=== PATIENT | male | born 1960 | race Caucasian/White ===

== ENCOUNTER 2016-07-13 20:18 | Emergency (ER) | payer OTHER ==
[~2016-07-13] VITALS: Ht 185.4 cm; Wt 94.8 kg
[~2016-07-13 20:18] MED LIST: AMOXICILLIN875 M1 PO; AMOXIL 875 MG875 MG PO; BYDUREON PEN2 MG IM; CHANTIX 1 MG1 MG; CHANTIX 1 MG1 MG PO; CIALIS5 MG; COZAAR 100MG T100 MG PO; ENDOCET 325 MG-1 TA1 PO; FARXIGA10 MG PO; FARXIGA5 MG PO; FENOFIBRATE200 MG PO; FLEXERIL10 MG PO; GABAPENTIN TAB600 MG PO; GABAPENTIN600 MG PO; LEVEMIR FLEX100 U/M1 SC; LIPITOR 40MG40 MG PO; MASON NATURAL1200 MG PO; METFORMIN1000 MG PO; NORCO 325 MG-51 TAB PO; NORFLEX100 MG PO; NORTRIPTYLINE H50 M1 PO; NORTRIPTYLINE H50 MG PO; OMEGA-3-ACID ETH1 GM PO; PERCOCET 325 MG1 TA2 PO; PERCOCET 5-3251 EACH PO; PREDNISONE10 MG PO; PROTONIX 20MG T20 MG PO
[2016-07-13 20:45] VITALS: BP 130/78
--- NOTE | 2016-07-13 22:00 | ED NECK/BACK PAIN COMPLAINT ---
History of Present Illness General Chief Complaint: Neck/Upper Back Pain/Injury Stated Complaint: NECK PAIN Source: patient Exam Limitations: no limitations Vital Signs & Intake/Output Vital Signs & Intake/Output Vital Signs Date Time Temp Pulse Resp B/P B/P Pulse O2 O2 Flow FiO2 Mean Ox Delivery Rate 07/13 2044 98.2 74 20 130/78 96 Room Air Allergies Coded Allergies: ibuprofen (HIVES, ITCHY, GI UPSET 09/13/15) Reconcile Medications Amlodipine Besylate 2.5 MG TABLET 1 TAB PO DAILY BP (Reported) Amoxicillin 875 MG TABLET 1 TAB PO BID INFECTION Atorvastatin Calcium 40 MG TABLET 1 TAB PO DAILY CHOLESTEROL (Reported) Empagliflozin/Metformin HCl (Synjardy 12.5-1,000 MG Tablet) 12.5 MG-1,000 MG TABLET 1 TAB PO BID DM (Reported) Fenofibrate,Micronized (Fenofibrate) 200 MG CAPSULE 1 CAP PO DAILY CHOLESTEROL /TRIGLYCERIDES (Reported) Gabapentin 600 MG TABLET 1 TAB PO 4XDAILY NERVE PAIN (Reported) Hydrocodone/Acetaminophen (Hydrocodon-Acetaminophen 5-325) (Unknown Strength) TABLET (Unknown Dose) UNKNOWN (Reported) Insulin Detemir (Levemir Flextouch) 100 UNIT/ML (3 ML) INSULN.PEN 30 UNITS SC BID DM (Reported) Lorazepam 0.5 MG TABLET 1 TAB PO 4XDAILY ANXIETY (Reported) Losartan Potassium 100 MG TABLET 1 TAB PO DAILY BP (Reported) Nortriptyline HCl (Pamelor) 50 MG CAPSULE 1 CAP PO QPM MOOD (Reported) [place]-3/Dha/Epa/Fish Oil (Fish Oil 1,000 MG Softgel) (Unknown Strength) CAPSULE (Unknown Dose) PO BID SUPPLEMENT (Reported) Oxycodone HCl/Acetaminophen (Percocet 5-325 MG Tablet) 1 EACH TABLET 1 TAB PO Q4-6 PRN PAIN Triage Note: PT TO ED C/O NECK PAIN SINCE SATURDAY. STATES PAIN IS BURNING IN NATURE, GOES DOWN LEFT SHOULDER AND INTO ARM. HAS SOME TINGELING IN LEFT ARM. DENIES INJURY. DENIES CHEST PAIN, DENIES SOB Triage Nurses Notes Reviewed? yes Onset: Gradual Duration: constant Timing: recent history Quality/Severity: severe, burning, radiation Location: C-spine HPI: Patient is a 56 year old male who presents emergency room with a five-day history of persistent left-sided lateral and upper trapezius muscular pain with paresthesia radiating down his left upper extremity. Patient states that he's had similar episodes in the past. Denies any cervical intervention in his neck. Denies any fevers chills. Denies any mechanism of injury. Denies any extremity swelling shortness of breath chest pain arm pain jaw pain nausea vomiting hemoptysis palpitations or diaphoresis. (ILANA GALICIA) Past History Travel History Traveled to [place] past 21 day No Medical History Any Pertinent Medical History? see below for history Neurological: NONE EENT: NONE Cardiovascular: hypertension, hyperlipidemia Respiratory: NONE Gastrointestinal: NONE Hepatic: NONE Renal: NONE Musculoskeletal: NONE Psychiatric: NONE Endocrine: diabetes Cancer(s): NONE Surgical History Surgical History: hernia repair-umbilical Psychosocial History What is your primary language Yi Tobacco Use: Quit >30 days ago ETOH Use: denies use Illicit Drug Use: denies illicit drug use Family History Hx Contributory? No (ILANA GALICIA) Review of Systems Review of Systems Constitutional: Reports: no symptoms. Eyes: Reports: no symptoms. Ears, Nose, Throat, Mouth: Reports: no symptoms. Respiratory: Reports: no symptoms. Cardiovascular: Reports: no symptoms. Gastrointestinal/Abdominal: Reports: no symptoms. Musculoskeletal: Reports: see HPI, muscle pain, muscle stiffness, neck pain. Skin: Reports: no symptoms. Neurological/Psychological: Reports: see HPI, paresthesia. All Other Systems: Reviewed and Negative (ILANA GALICIA) Physical Exam Physical Exam General Appearance: no apparent distress, comfortable Neck: normal inspection, supple, limited range of motion, paraspinous muscle tender, stiff neck, tender lateral, no midline tenderness Comments: Well-developed well-nourished person in no acute distress HEENT: Normal EENT exam, extraocular motion intact, no nystagmus. Pupils equally round and reactive to light and accommodation. Nose is atraumatic. External auditory canal and Tympanic membranes clear. Pharynx normal. No swelling or edema. Back: Nontender, no CVA tenderness Cardiovascular: Regular rate and rhythms no murmurs rubs or gallops, normal JVP Respiratory: Chest nontender. No respiratory distress.breath sounds clear to auscultation bilaterally Abdomen: Soft, nontender nondistended, no appreciable organomegaly. Normal bowel sounds. No ascites Extremity: No edema, no calf tenderness to palpation, normal and equal pulses. Bilateral upper extremity myotomes dermatomes DTRs intact Neuro: Alert oriented x3, motor sensory normal, Skin: No appreciable rash on exposed skin, skin is warm and dry. Psych: Mood and affect is normal, memory and judgment is normal. (ILANA GALICIA) Progress Differential Diagnosis: AAA, aortic dissection, C spine injury, carotid dissection, cauda equina syn, herniated disc, myofascial strain, pyelo/UTI, sciatica, spinal cord inj, thoracic outlet syn, T/L spine injury, ureterolithiasis, MYOCARDIAL INFARCTION, Plan of Care: Current Medications Sig/Rene Start time Last Medication Dose Stop Time Status Admin Dexamethasone 8 MG ONCE ONE 07/13 2229 UNVr (Decadron) 07/13 2230 Patient on the examination shows concerns of muscular involvement of the left paracervical muscular region with concerns of cervical radiculopathy. Patient does not express any cardiovascular or respiratory complaints at this time. Patient shows no concerns of DVT. Patient was neurovascularly myotomes and dermatomes intact It was noted that patient had previously prescribed benzodiazepine and narcotics this month. Due to history of present illness and exam findings Patient will be treated for concerns of cervical radiculopathy (ILANA GALICIA) Departure Departure Disposition: HOME OR SELF CARE Condition: Stable Clinical Impression Primary Impression: Cervical radicular pain Referrals: TERRANCE WALLACE,NHUNG (PCP/Family) Additional Instructions: As discussed you have received intramuscular injection of Decadron for inflammation. Continue all medications as directed. Begin icing the area directly 20 minutes every 2 hours. Begin the prescription of cyclobenzaprine for muscle relaxation. Prescriptions are waiting at [facility] pharmacy. If no better Saturday follow-up with primary care doctor. If symptoms worsen return to emergency room Departure Forms: Customer Survey General Discharge Information (ILANA GALICIA) PA/SENIOR FIRE PROTECTION ENGINEER Co-Sign Statement Statement: ED Attending supervision documentation- [] I saw and evaluated the patient. I have also reviewed all the pertinent lab results and diagnostic results. I agree with the findings and the plan of care as documented in the PA's/SENIOR FIRE PROTECTION ENGINEER's documentation. [x] I have reviewed the ED Record and agree with the PA's/SENIOR FIRE PROTECTION ENGINEER's documentation. [] Additions or exceptions (if any) to the PAs/SENIOR FIRE PROTECTION ENGINEER's note and plan are summarized below: [] (BRYCE WALLACE,CHERELLE Kumar)
[2016-07-13] MEDS ORDERED: SYNJARDY 12.5-1 EACH PO (22:25)
[2016-07-13] MEDS ORDERED: ATORVASTATIN CA40 M1 PO (22:25)
[2016-07-13] MEDS ORDERED: LOSARTAN POTAS100 M1 PO (22:26)
[2016-07-13] MEDS ORDERED: GABAPENTIN600 M1 PO (22:26)
[2016-07-13] MEDS ORDERED: LORAZEPAM0.5 M1 PO (22:26)
[2016-07-13] MEDS ORDERED: AMLODIPINE BES2.5 M1 PO (22:26)
[2016-07-13] MEDS ORDERED: HYDROCODON-ACE1 EAC2 (22:27)
[2016-07-13] MEDS ORDERED: LEVEMIR FL100 UNIT/1 SC (22:27)
[2016-07-13] MEDS ORDERED: PAMELOR50 M1 PO (22:27)
[2016-07-13] MEDS ORDERED: FENOFIBRATE200 M1 PO (22:27)
[2016-07-13] MEDS ORDERED: FISH OIL 1,001000 MG PO (22:28)
== END 2016-07-13 22:40 ==
LOC: ERH 20:18
DX: M54.12 Radiculopathy, cervical region (principal)
CPT/HCPCS: 96372; J1100

== ENCOUNTER 2017-07-23 21:51 | Emergency (ER) | payer SELFPAY ==
[~2017-07-23] VITALS: Ht 185.4 cm; Wt 95.3 kg
[~2017-07-23 21:51] MED LIST changes: +AMLODIPINE BES2.5 M1 PO; +ATORVASTATIN CA40 M1 PO; +FENOFIBRATE200 M1 PO; +FISH OIL 1,001000 MG PO; +GABAPENTIN600 M1 PO; +HYDROCODON-ACE1 EAC2; +LEVEMIR FL100 UNIT/1 SC; +LORAZEPAM0.5 M1 PO; +LOSARTAN POTAS100 M1 PO; +MEDROL4 M2 PO; +PAMELOR50 M1 PO; +SYNJARDY 12.5-1 EACH PO; +TRAMADOL HCL50 M1 PO
[2017-07-23 22:40] LABS: ABSOLUTE BASOPHIL COUNT 0 /CUMM (0.0-0.2); ABSOLUTE EOSINOPHIL COUNT 0.4 /CUMM (0.0-0.7); ABSOLUTE GRANULOCYTE CT 7.2 /CUMM (1.4-6.5); ABSOLUTE LYMPH COUNT 2.3 /CUMM (1.2-3.4); ABSOLUTE MONOCYTE COUNT 0.7 /CUMM (0.10-0.60); BASOPHIL % 0.4 % (0.0-2.0); EOSINOPHIL % 3.5 % (0-5); HEMATOCRIT 41.3 % (42-52); MEAN CORPUSCULAR HGB 31.2 PG (27.0-31.0); MEAN CORPUSCULAR HGB CONC 33.8 G/DL (33.0-37.0); MEAN CORPUSCULAR VOLUME 92.4 FL (80.0-94.0); MEAN PLATELET VOLUME 10.3 FL (7.4-10.4); PLATELET COUNT 252 /CUMM (130-400); RBC DISTRIBUTION WIDTH 14.2 % (11.5-14.5); RED BLOOD CELL CT 4.48 /CUMM (4.70-6.10); WHITE BLOOD CELL COUNT 10.6 /CUMM (4.8-10.8)
[2017-07-23 22:53] LABS: GRANULOCYTE % 67.5 % (42.2-75.2)
--- NOTE | 2017-07-23 23:32 | RADIOLOGY REPORT ---
EXAMINATION: XR PORTABLE CHEST CLINICAL INFORMATION: Chest pain COMPARISON: 01/26/2011 TECHNIQUE: Portable frontal view of the chest was obtained. FINDINGS: The lungs are well expanded. There is no focal consolidation, edema, or effusion. No pneumothorax. The cardiomediastinal silhouette is within normal limits. No acute osseous abnormality. IMPRESSION: No acute pulmonary findings.
--- NOTE | 2017-07-24 00:47 | ED CARDIAC/CP/PALPITATIONS ---
See Addendum History of Present Illness General Chief Complaint: Chest Pain Stated Complaint: PT HAS C P GOING UP LT SIDE OF NECK,NO SLEEPING 4D Source: patient, family Exam Limitations: no limitations Vital Signs & Intake/Output Vital Signs & Intake/Output Vital Signs Date Time Temp Pulse Resp B/P B/P Pulse O2 O2 Flow FiO2 Mean Ox Delivery Rate 07/24 0211 62 16 174/87 98 Room Air Room Air 07/24 0059 185/91 07/24 0017 98 07/24 0017 58 16 185/91 98 Room Air Room Air 07/23 2158 97.9 64 18 187/97 97 Room Air ED Intake and Output 07/24 0000 07/23 1200 Intake Total Output Total Balance Patient 210 lb Weight Weight Reported by Patient Measurement Method Allergies Coded Allergies: ibuprofen (HIVES, ITCHY, GI UPSET 09/13/15) Reconcile Medications Amlodipine Besylate 2.5 MG TABLET 1 TAB PO DAILY BP (Reported) Amoxicillin 875 MG TABLET 1 TAB PO BID INFECTION Atorvastatin Calcium 40 MG TABLET 1 TAB PO DAILY CHOLESTEROL (Reported) Empagliflozin/Metformin HCl (Synjardy 12.5-1,000 MG Tablet) 12.5 MG-1,000 MG TABLET 1 TAB PO BID DM (Reported) Fenofibrate,Micronized (Fenofibrate) 200 MG CAPSULE 1 CAP PO DAILY CHOLESTEROL /TRIGLYCERIDES (Reported) Gabapentin 600 MG TABLET 1 TAB PO 4XDAILY NERVE PAIN (Reported) Hydrocodone/Acetaminophen (Hydrocodon-Acetaminophen 5-325) (Unknown Strength) TABLET (Unknown Dose) UNKNOWN (Reported) Insulin Detemir (Levemir Flextouch) 100 UNIT/ML (3 ML) INSULN.PEN 30 UNITS SC BID DM (Reported) Lorazepam 0.5 MG TABLET 1 TAB PO 4XDAILY ANXIETY (Reported) Losartan Potassium 100 MG TABLET 1 TAB PO DAILY BP (Reported) Methylprednisolone. (Medrol) 4 MG TAB.DS.PK 1 DP PO AD INFLAMMATION 6 on day 1 then reduce by one tablet daily until gone Nortriptyline HCl (Pamelor) 50 MG CAPSULE 1 CAP PO QPM MOOD (Reported) [place]-3/Dha/Epa/Fish Oil (Fish Oil 1,000 MG Softgel) (Unknown Strength) CAPSULE (Unknown Dose) PO BID SUPPLEMENT (Reported) Oxycodone HCl/Acetaminophen (Percocet 5-325 MG Tablet) 1 EACH TABLET 1 TAB PO Q4-6 PRN PAIN Oxycodone HCl/Acetaminophen (Percocet 5-325 MG Tablet) 5 MG-325 MG TABLET 1 TAB PO Q6P PRN pain Tramadol HCl 50 MG TABLET 1 TAB PO BIDP PRN PAIN Triage Note: PRESENTS TO ED COMPLAINING OF INSOMNIA X 4 DAYS. ALSO REPORTS APPROXIMATELTY 5 HOURS AGO HE BEGAN EXPERIENCING CHEST DISCOMFORT RADIATING TO THE LEFT SIDE OF HIS NECK. DENIED NAUSEA OR VOMITING, NO DIAPHRESIS NOTED. Triage Nurses Notes Reviewed? yes HPI: Patient presents for evaluation of intermittent chest pain episodes of began about one month ago. The patient states that he came to the emergency department this evening because the chest pain radiated to the left side of the neck, which concerned him. Patient states that he has had chest pain episodes each week since onset. They feel like a diffuse discomfort in the chest, described as "feeling like Jell-O". He denies any associated arm pain diaphoresis or dyspnea but does occasionally feel warm when he has his chest pain episodes. The pain when present waxes and wanes from a 5-7/10 in intensity. The patient inhales nicotine via E cigarettes having quit smoking roughly 2 years ago. He states he often takes an alcoholic beverage to help him sleep at night but hasn't had any for about 2 weeks. He denies any drug use. He has been noncompliant with his medications for cholesterol diabetes and hypertension because of the loss of employment and insurance benefits. Past History Travel History Traveled to [place] past 21 day No Medical History Any Pertinent Medical History? see below for history Neurological: NONE EENT: NONE Cardiovascular: hypertension, hyperlipidemia Respiratory: NONE Gastrointestinal: NONE Hepatic: NONE Renal: NONE Musculoskeletal: NONE Psychiatric: NONE Endocrine: diabetes Blood Disorders: NONE Cancer(s): NONE Surgical History Surgical History: hernia repair-umbilical Psychosocial History What is your primary language [place] Tobacco Use: Quit >30 days ago Family History Hx Contributory? No Review of Systems Review of Systems Constitutional: Reports: no symptoms. EENTM: Reports: no symptoms. Respiratory: Reports: no symptoms. Cardiovascular: Reports: see HPI. GI: Reports: no symptoms. Genitourinary: Reports: no symptoms. Musculoskeletal: Reports: no symptoms. Skin: Reports: no symptoms. Neurological/Psychological: Reports: no symptoms. Hematologic/Endocrine: Reports: no symptoms. Immunologic/Allergic: Reports: no symptoms. All Other Systems: Reviewed and Negative Physical Exam Physical Exam Cardiovascular: SEE BELOW Comments: Gen.: Well-nourished, well-developed, no acute respiratory distress. Head: Normocephalic, atraumatic. Eyes: Normal inspection bilaterally Ears: Normal inspection bilaterally Nose: Normal inspection Throat/mouth : Moist mucosa Neck: Supple, full range of motion, no goiter Heart: Regular rate and rhythm, no murmurs rubs or gallops Lungs: Clear to auscultation bilaterally with normal air entry Chest: Nontender Back: Normal range of motion Abdomen: Soft, nontender, nondistended, normal bowel sounds Extremities: Normal range of motion grossly, equal radial pulses, no cyanosis clubbing or edema Neurologic: Cranial nerves grossly intact, speech is clear Skin: warm and dry Psychiatric: Calm, cooperative, no apparent delusions or hallucinations Core Measures ACS in differential dx? No CVA/TIA Diagnosis No Sepsis Present: No Sepsis Focused Exam Completed? No Progress Differential Diagnosis: AMI (OKAY), aortic dissection, atrial fibrillation, CHF/ pulm edema, musculoskeletal pain, pericarditis, pneumonia, pneumothorax, PSVT, unstable angina, V-fib/V-Tach, WPW syndrome Plan of Care: Orders Procedure Date/time Status TROPONIN LEVEL 07/240 Complete EKG 07/24 0200 Active FingerStick- Glucose 07/24 0047 Active URINALYSIS 07/24 0028 Complete TROPONIN LEVEL 07/23 220 Complete MAGNESIUM 07/23 2205 Complete COMPREHENSIVE METABOLIC PANEL 07/23 2205 Complete CHOLESTEROL 07/23 2205 Complete CBC WITHOUT DIFFERENTIAL 07/23 2205 Complete EKG 07/23 2154 Active Laboratory Tests 07/24/17 0200: Troponin I < 0.01 07/24/17 0030: Urine Color STRAW, Urine Clarity CLEAR, Urine pH 6.5, Ur Specific [place] 1.010, Urine Protein NEG, Urine Ketones NEG, Urine Nitrite NEG, Urine Bilirubin NEG, Urine Urobilinogen 0.2, Ur Leukocyte Esterase NEG, Ur Microscopic EXAM NOT REQUIRED, Urine Hemoglobin NEG, Urine Glucose 500 H 07/23/17 2209: Anion Gap 12, Estimated GFR > 60, BUN/Creatinine Ratio 18.6, Glucose 269 H, Calcium 8.4, Magnesium 1.4 L, Total Bilirubin 0.6, AST 33, ALT 19 L, Alkaline Phosphatase 171 H, Troponin I < 0.01, Total Protein 6.7, Albumin 3.8, Globulin 2.9, Albumin/Globulin Ratio 1.3, Cholesterol 217 H, CBC w Diff NO MAN DIFF REQ, RBC 4.48 L, MCV 92.4, MCH 31.2 H, MCHC 33.8, RDW 14.2, MPV 10.3, Gran % 67.5, Lymphocytes % 21.7, Monocytes % 6.9, Eosinophils % 3.5, Basophils % 0.4, Absolute Granulocytes 7.2 H, Absolute Lymphocytes 2.3, Absolute Monocytes 0.7 H, Absolute Eosinophils 0.4, Absolute Basophils 0 Diagnostic Imaging: Discussed w/RAD: Radiology Read. CXR Impression: PATIENT: SILVESTRE VALDES JR PRESENT AGE: 57 PATIENT ACCOUNT NO: [id number] : 60 LOCATION: [facility] ORDERING PHYSICIAN: Mihir Solomon DO (TBS) SERVICE DATE: 07/23/17 EXAM TYPE: RAD - XRY-PORTABLE CHEST XRAY EXAMINATION: XR PORTABLE CHEST CLINICAL INFORMATION: Chest pain COMPARISON: 01/26/2011 TECHNIQUE: Portable frontal view of the chest was obtained. FINDINGS: The lungs are well expanded. There is no focal consolidation, edema, or effusion. No pneumothorax. The cardiomediastinal silhouette is within normal limits. No acute osseous abnormality. IMPRESSION: No acute pulmonary findings. DICTATED BY: Amrik Louis MD DATE/TIME DICTATED: 07/23/172326 DOCTOR OF RADIOLOGY:BENY DATE/TIME TRANSCRIBED:07/23/172326 CONFIDENTIAL, DO NOT COPY WITHOUT APPROPRIATE AUTHORIZATION. <Electronically signed in Other Vendor System> SIGNED BY: Amrik Louis MD 07/23/17 3536 Initial ED EKG: NSR, rate (62), nonspecific ST T wave chg Prior EKG: unchanged Comments: 07/24/2017 3:52:25 AM upon my arrival to the room I found Silvestre sleeping but he arose easily. I have updated him and his on test results. He states that the Xanax made him feel much better and he was able to sleep. He wishes to try this medication over the next few days to see if it impacts on his chest pain episodes. Departure Departure Disposition: HOME OR SELF CARE Condition: Stable Clinical Impression Primary Impression: Atypical chest pain Secondary Impressions: Stress Referrals: Yamileth WALLACE,Daryl (PCP/Family) Maximo Branch MD Additional Instructions: Xanax as prescribed. Rest, no exertion or heavy lifting. Strict diabetic diet, low salt diet. Follow-up with Dr. Branch as soon as possible for reevaluation and further testing. Notify your primary care doctor this emergency department visit and treatment plan. Return if any concerns or sudden worsening. Please note that there might be incidental findings in your evaluation that are unrelated to the current emergency department visit. Please notify your primary care doctor about this emergency department visit in order to obtain and review all of the testing performed so that these incidental findings can be monitored as needed. If you had an x-ray performed, please understand that some fractures may not be seen on the initial set of x-rays. If your symptoms persist you might need a repeat set of x-rays to check for such a fracture. If you had a laceration evaluated, please understand that foreign bodies such as glass or wood may not be visible to the naked eye or on plain x-rays. If the wound becomes red, swollen, increasingly more painful or if there is any drainage from the wound, please have it reevaluated by a physician for the possibility of a retained foreign body. If you're unable to follow up as outlined in the discharge instructions please return to the emergency department. Thank you for choosing the [facility] Emergency Department for your care. It was a pleasure to serve you today. Mihir De La Garza M.D. [facility] Departure Forms: Customer Survey General Discharge Information Prescriptions: Current Visit Scripts Alprazolam (Xanax) 1 TAB PO BIDP PRN STRESS/CHEST PAIN #10 TAB Critical Care Note Critical Care Note Critical Care Time: non-applicable
[2017-07-24 02:11] VITALS: BP 174/87
[2017-07-24] MEDS ORDERED: XANAX0.25 M1 PO (03:55)
== END 2017-07-24 04:21 ==
LOC: ERH 21:51
PROVIDERS: Emergency Medicine
DX: R07.89 Other chest pain (principal); F43.9 Reaction to severe stress, unspecified
CPT/HCPCS: 71045; 81003; 93005; 93010; 96372

== ENCOUNTER 2017-10-01 17:06 | Inpatient (IN) | payer OTHER ==
[~2017-10-01] VITALS: Ht 188 cm; Wt 95.3 kg
[~2017-10-01 17:06] MED LIST changes: +XANAX0.25 M1 PO
[2017-10-01 17:41] LABS: ABSOLUTE BASOPHIL COUNT 0 /CUMM (0.0-0.2); ABSOLUTE EOSINOPHIL COUNT 0 /CUMM (0.0-0.7); ABSOLUTE GRANULOCYTE CT 9.9 /CUMM (1.4-6.5); ABSOLUTE LYMPH COUNT 1.2 /CUMM (1.2-3.4); ABSOLUTE MONOCYTE COUNT 0.7 /CUMM (0.10-0.60); BASOPHIL % 0.1 % (0.0-2.0); EOSINOPHIL % 0.3 % (0-5); HEMATOCRIT 38.9 % (42-52); MEAN CORPUSCULAR HGB 30.1 PG (27.0-31.0); MEAN CORPUSCULAR HGB CONC 33.1 G/DL (33.0-37.0); MEAN CORPUSCULAR VOLUME 90.8 FL (80.0-94.0); PLATELET COUNT 172 /CUMM (130-400); RBC DISTRIBUTION WIDTH 14.1 % (11.5-14.5); RED BLOOD CELL CT 4.29 /CUMM (4.70-6.10); WHITE BLOOD CELL COUNT 11.8 /CUMM (4.8-10.8)
[2017-10-01 18:06] LABS: GRANULOCYTE % 83.4 % (42.2-75.2)
--- NOTE | 2017-10-01 18:50 | CT SCAN REPORT ---
CT ABDOMEN AND PELVIS WITH CONTRAST CLINICAL INFORMATION: Abdominal pain and nausea. Not passing stool or gas. COMPARISON: Abdominal CT 05/04/2015. TECHNIQUE: Multidetector volumetric imaging was performed of the abdomen and pelvis following IV administration of 95 mL of Optiray 320 intravenous contrast. Sagittal and coronal reformatted images were obtained on the technologist's workstation. FINDINGS: There is fairly extensive edema and inflammation surrounding the second and third portions of the duodenum as well as the pancreas. Edema tracks anteriorly below the greater curvature of the stomach towards the transverse colon, and tracks inferiorly along the paracolic gutters on both sides. The second and third portions of the duodenum appear thick-walled and portions of the stomach also appear slightly thick-walled. No discrete peripherally enhancing fluid collections. The common bile duct and pancreatic duct are normal in size. The portal venous system remains patent. The lung bases are clear. There is diffuse hepatic steatosis. The spleen, adrenal glands, and gallbladder are normal. The kidneys exhibit symmetric nephrograms without evidence of hydronephrosis or nephrolithiasis. There are a few small bilateral renal cysts. Scattered colonic diverticulosis without acute diverticulitis. There is intramural fat within the ascending colon and portions of the transverse colon which can be seen as the sequela of inflammatory bowel disease. The large and small bowel are normal in caliber without evidence of mechanical obstruction.The appendix is normal. There is no free air . No mesenteric or retroperitoneal adenopathy. There is aortoiliac atherosclerotic calcification. Central prostate calcifications. No pelvic adenopathy. Free fluid layers dependently within the pelvis. There are no acute osseous abnormalities. No significant soft tissue abnormality. IMPRESSION: - There is fairly extensive edema and inflammation surrounding the second and third portions of the duodenum as well as the pancreas. Edema tracks anteriorly below the greater curvature of the stomach towards the transverse colon, and tracks inferiorly along the paracolic gutters on both sides, greater on the right. Differential considerations include the sequela of pancreatitis or duodenitis/gastritis with the latter favored given that the pancreas itself looks relatively normal in appearance and that the second and third portions of the duodenum and to a lesser extent the stomach appear thick walled with mucosal hyperenhancement. Recommend correlation with serum amylase/lipase. - Diffuse hepatic steatosis. - There is intramural fat within the ascending colon and portions of the transverse colon which can be seen as the sequela of inflammatory bowel disease. Recommend correlation with the patient's history.
--- NOTE | 2017-10-01 19:54 | ED GI/GU/ABDOMINAL COMPLAINT ---
History of Present Illness General Chief Complaint: General Adult Stated Complaint: LOWER BELLY PAIN Source: patient, family Exam Limitations: no limitations Vital Signs & Intake/Output Vital Signs & Intake/Output Vital Signs Date Time Temp Pulse Resp B/P B/P Pulse O2 O2 Flow FiO2 Mean Ox Delivery Rate 10/01 1714 98.5 83 18 122/71 99 Room Air Allergies Coded Allergies: ibuprofen (HIVES, ITCHY, GI UPSET 09/13/15) Reconcile Medications Alprazolam (Xanax) 0.25 MG TABLET 1 TAB PO BIDP PRN STRESS/CHEST PAIN Amlodipine Besylate 2.5 MG TABLET 1 TAB PO DAILY BP (Reported) Amoxicillin 875 MG TABLET 1 TAB PO BID INFECTION Atorvastatin Calcium 40 MG TABLET 1 TAB PO DAILY CHOLESTEROL (Reported) Empagliflozin/Metformin HCl (Synjardy 12.5-1,000 MG Tablet) 12.5 MG-1,000 MG TABLET 1 TAB PO BID DM (Reported) Fenofibrate,Micronized (Fenofibrate) 200 MG CAPSULE 1 CAP PO DAILY CHOLESTEROL /TRIGLYCERIDES (Reported) Gabapentin 600 MG TABLET 1 TAB PO 4XDAILY NERVE PAIN (Reported) Hydrocodone/Acetaminophen (Hydrocodon-Acetaminophen 5-325) (Unknown Strength) TABLET (Unknown Dose) UNKNOWN (Reported) Insulin Detemir (Levemir Flextouch) 100 UNIT/ML (3 ML) INSULN.PEN 30 UNITS SC BID DM (Reported) Lorazepam 0.5 MG TABLET 1 TAB PO 4XDAILY ANXIETY (Reported) Losartan Potassium 100 MG TABLET 1 TAB PO DAILY BP (Reported) Methylprednisolone. (Medrol) 4 MG TAB.DS.PK 1 DP PO AD INFLAMMATION 6 on day 1 then reduce by one tablet daily until gone Nortriptyline HCl (Pamelor) 50 MG CAPSULE 1 CAP PO QPM MOOD (Reported) [place]-3/Dha/Epa/Fish Oil (Fish Oil 1,000 MG Softgel) (Unknown Strength) CAPSULE (Unknown Dose) PO BID SUPPLEMENT (Reported) Oxycodone HCl/Acetaminophen (Percocet 5-325 MG Tablet) 1 EACH TABLET 1 TAB PO Q4-6 PRN PAIN Oxycodone HCl/Acetaminophen (Percocet 5-325 MG Tablet) 5 MG-325 MG TABLET 1 TAB PO Q6P PRN pain Tramadol HCl 50 MG TABLET 1 TAB PO BIDP PRN PAIN Triage Note: 57M W SEVERE LOWER ABD PAIN SINCE SATURDAY, CONSTANT AND UNIMPROVED. REPORTS HX OF ABDOMINAL SURGERY ON HERNIA. REPORTS LAST BM 3-4 DAYS AGO, NO FLATULENCE. APPEARS UNCOMFORTABLE IN TRIAGE. UNABLE TO EAT OR DRINK SINCE SATURDAY. +N/V BILE. DENIES SYMPTOMS OR CP/SOB Triage Nurses Notes Reviewed? yes HPI: Patient is a 57-year-old male with past medical history as outlined below who has been lost to PCP and GI follow-up secondary to insurance issues, who presents today with abdominal pain. Upon my initial encounter he is generally uncomfortable, and indicates the area of his pain is across the lower abdomen, with pain to a lesser degree across the upper abdomen. He is diffusely tender but not frankly peritonitic. He denies other symptoms at this time. Past History Travel History Traveled to [place] past 21 day No Medical History Any Pertinent Medical History? see below for history Neurological: NONE EENT: NONE Cardiovascular: hypertension, hyperlipidemia Respiratory: NONE Gastrointestinal: NONE Hepatic: NONE Renal: NONE Musculoskeletal: NONE Psychiatric: NONE Endocrine: diabetes Blood Disorders: NONE Cancer(s): NONE Surgical History Surgical History: hernia repair-umbilical Psychosocial History What is your primary language [place]ijani Tobacco Use: Current Daily Use Daily Tobacco Use Amount/Type: Smokeless tobacco daily Family History Hx Contributory? Yes Review of Systems Review of Systems Constitutional: Reports: see HPI. EENTM: Reports: no symptoms. Respiratory: Reports: no symptoms. Cardiovascular: Reports: no symptoms. GI: Reports: see HPI, abdominal pain, bloating, constipation. Denies: bloody stool, vomiting. Genitourinary: Reports: no symptoms. Musculoskeletal: Reports: no symptoms. Skin: Reports: no symptoms. Neurological/Psychological: Reports: no symptoms. Hematologic/Endocrine: Reports: no symptoms. Immunologic/Allergic: Reports: no symptoms. All Other Systems: Reviewed and Negative Physical Exam Physical Exam Gastrointestinal: tenderness Comments: HEENT: Inspection of the head reveals a normocephalic cranium with no signs of trauma. Ophtho: Extraocular muscles are intact and pupils are equal and reactive to light bilaterally with no afferent pupillary defect. The sclera are noninjected , and there is no obvious discharge. Neck: The trachea is midline, there is no obvious asymmetry or mass over the thyroid, and there is no midline cervical spine tenderness Respiratory: The lungs are clear and equal to auscultation bilaterally without wheezes, rales, or rhonchi. The patient exhibits no signs of labored breathing. Cardiac: Regular rhythm and non-tachycardic without appreciable murmurs on auscultation. No obvious JVD. GI: Examination of the abdomen reveals generalized abdominal tenderness without joni focality, worse in the bilateral lower quadrants but also quite severe in the epigastrium. There is negative joni Hernandez's sign, negative McBurney's point tenderness, negative [place] sign, negative Andino-Gallagher sign, and no signs of peritonitis whatsoever on percussion or deep palpation. The skin is intact with no sign of trauma or infection. : Deferred Neuro: The patient is oriented to person, place, time, and situation, with no obvious focal motor deficits. There were no sensory deficits, and the patient exhibit purposeful movement of all 4 extremities. Cranial nerves II through XII are intact, and gait is normal. Behavioral: Calm and cooperative Dermatologic: Dermatologic examination reveals no diffuse rashes or exanthems, no petechiae, no ecchymoses, and no other signs of erythema or infection. Core Measures ACS in differential dx? No Sepsis Present: No Sepsis Focused Exam Completed? No Progress Differential Diagnosis: AAA, appendicitis, bowel obstruction, colon cancer, cholecystitis, diverticulitis, gastritis, hernia, hemorrhoids, ischemic bowel, inflamm bowel dis, pancreatitis, peptic ulcer, PUD/GERD, perforated viscous, SBO Plan of Care: Orders Procedure Date/time Status Nothing by Mouth 10/02 B Active Add-on Test (ER Only) 10/01 1902 Active AMYLASE 10/01 1720 Complete URINALYSIS 10/01 171 Active TROPONIN LEVEL 10/01 1714 Complete LIPASE 10/01 1714 Complete LACTIC ACID 10/01 171 Complete COMPREHENSIVE METABOLIC PANEL 10/01 171 Complete CBC WITHOUT DIFFERENTIAL 10/01 171 Complete Laboratory Tests 10/01/17 2014: Lactic Acid Cancelled 10/01/17 1720: Anion Gap 12, Estimated GFR > 60, BUN/Creatinine Ratio 18.8, Glucose 227 H, Lactic Acid 1.4, Calcium 7.0 L, Total Bilirubin 1.1, AST 60 H, ALT 24, Alkaline Phosphatase 90, Troponin I < 0.01, Total Protein 6.1 L, Albumin 3.2 L , Globulin 2.9, Albumin/Globulin Ratio 1.1, Amylase 47, Lipase 196, CBC w Diff NO MAN DIFF REQ, RBC 4.29 L, MCV 90.8, MCH 30.1, MCHC 33.1, RDW 14.1, MPV 11.0 H, Gran % 83.4 H, Lymphocytes % 10.4 L, Monocytes % 5.8, Eosinophils % 0.3, Basophils % 0.1, Absolute Granulocytes 9.9 H, Absolute Lymphocytes 1.2, Absolute Monocytes 0.7 H, Absolute Eosinophils 0, Absolute Basophils 0 Initial ED EKG: none Comments: Patient is intubated today with severe abdominal pain and was found to have diffuse and severe inflammatory bowel disease. His pain is significant and his follow-up potential is poor, so he ultimately required hospitalization at the recommendation of Dr. Johnson from gastroenterology. She plans to perform an EGD tomorrow morning to definitively diagnose the patient's process. CT IMPRESSION: - There is fairly extensive edema and inflammation surrounding the second and third portions of the duodenum as well as the pancreas. Edema tracks anteriorly below the greater curvature of the stomach towards the transverse colon, and tracks inferiorly along the paracolic gutters on both sides, greater on the right. Differential considerations include the sequela of pancreatitis or duodenitis/gastritis with the latter favored given that the pancreas itself looks relatively normal in appearance and that the second and third portions of the duodenum and to a lesser extent the stomach appear thick walled with mucosal hyperenhancement. Recommend correlation with serum amylase/lipase. - Diffuse hepatic steatosis. - There is intramural fat within the ascending colon and portions of the transverse colon which can be seen as the sequela of inflammatory bowel disease. Recommend correlation with the patient's history. Departure Departure Time of Disposition: 2024 Disposition: STILL A PATIENT Condition: Stable Clinical Impression Primary Impression: Inflammatory bowel disease Referrals: Patient Has No Primary Care Dr (PCP/Family) Departure Forms: Customer Survey General Discharge Information Admission Note Spoke With: Francy Castelan MD Documentation of Exam: Documentation of any treatments & extenuating circumstances including Concerns Regarding Discharge (functional status, medication knowledge or non-compliance, living conditions, etc.) that warrant an admission rather than observation: Patient requires hospitalization for multiple reasons including intravenous analgesics, gentle IV fluid resuscitation, GI consultation, and EGD procedure in the morning. I do not feel that discharge home is reasonable given the severity of his pain and the unlikelihood of him obtaining close outpatient follow-up given that he does not have a spool cleaner nor does he have any insurance whatsoever.
--- NOTE | 2017-10-01 20:41 | History & Physical ---
Fadi Evangelista 10/01/172039: General Information and HPI MD Statement: I have seen and personally examined SILVESTRE VALDES Oswaldo PRESTON and documented this H&P. The patient is a 57 year old M who presented with a patient stated chief complaint of [lower abdominal pain]. Source of Information: patient Exam Limitations: no limitations History of Present Illness: The patient is a 57 years old gentleman with history of type 2 DM, HLP, and HTN, who is here with CC of abdominal pain. His abdominal pain started 3 days ago in his lower part of abdomen, was 3/10 then. The pain gradually worsened to 8/10. He did not have any bowel movement for the past few days. Today when he was at work he has a large bowel movement which was not bloody and no ian. He lost his medical insurance in Apr 2017, so unfortunately he was not able to take his medication for the past 4 months. He also reports decreased apetite for the past few days and also nausea, but he had no vomitting. He reports no history of diarrhea or constipation recently, but he had fatigue lately. He has not had fever, chills, sweating, chest pain, SOB, or alcohol use lately. No history of Visual problem, oral lesion, no rash, no sick contact, no travel, no joint pain, and no food poisoning. He has a history of dyspahgia in 2012, an upper GI endoscopy was done which was normal. He still has dysphagia to both solid and liquid. He also had a colonoscopy done in 2015 which was normal. 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 No alcohol, Is and has 6 children. Imaging: Abdominal CT with IV contrast: There is fairly extensive edema and inflammation surrounding the second and third portions of the duodenum as well as the pancreas. Edema tracks anteriorly below the greater curvature of the stomach towards the transverse colon, and tracks inferiorly along the paracolic gutters on both sides, greater on the right. Differential considerations include the sequela of pancreatitis or duodenitis/gastritis with the latter favored given that the pancreas itself looks relatively normal in appearance and that the second and third portions of the duodenum and to a lesser extent the stomach appear thick walled with mucosal hyperenhancement. Diffuse hepatic steatosis. There is intramural fat within the ascending colon and portions of the transverse colon which can be seen as the sequela of inflammatory bowel disease. Labs: WBC: 11.8, Hb: 12.9, Plt: 172 Na: 135, K: 3.7 BS: 227, Cr: 0.8, BUN 15 Lipase: 196, Amylase: 47 Ca: 7.0 ,Alb: 3.2 AST: 60, ALT: 24, Alk Ph: 90 Trop: 0.01 Problem list: 1. R/O IBD 2. R/O infectious colitis 3. DM, HTN, HLP 5. Dysphagia Allergies/Medications Allergies: Coded Allergies: ibuprofen (HIVES, ITCHY, GI UPSET 09/13/15) Compliance With Home Meds: GOOD (Last taken 4 months ago) Past History Travel History Traveled to [place] past 21 day No Medical History Neurological: NONE EENT: NONE Cardiovascular: hypertension, hyperlipidemia Respiratory: NONE Gastrointestinal: NONE Hepatic: NONE Renal: NONE Musculoskeletal: NONE Psychiatric: NONE Endocrine: diabetes Blood Disorders: NONE Cancer(s): NONE Surgical History Surgical History: hernia repair-umbilical Past Family/Social History Family History Relations & Conditions if any BROTHER FH: colon cancer in first degree relative <60 years old, Onset: 50-60. MOTHER SON Relation not specified for: FH: brain tumor FH: breast cancer Psychosocial History Smoking Status: Former Smoker (Now smokes E-cig) ETOH Use: denies use Illicit Drug Use: denies illicit drug use Review of Systems Review of Systems Constitutional: Reports: see HPI. EENTM: Reports: see HPI. Cardiovascular: Reports: see HPI. Respiratory: Reports: see HPI. GI: Reports: see HPI. Genitourinary: Reports: see HPI. Musculoskeletal: Reports: see HPI. Skin: Reports: see HPI. Neurological/Psychological: Reports: see HPI. Hematologic/Endocrine: Reports: see HPI. Immunologic/Allergic: Reports: see HPI. Date of Last Colonoscopy: 09/21/15 Exam & Diagnostic Data Last 24 Hrs of Vital Signs/I&O Vital Signs Date Time Temp Pulse Resp B/P B/P Pulse O2 O2 Flow FiO2 Mean Ox Delivery Rate 10/02 0000 97.9 73 18 120/70 94 Nasal 2.0L Cannula 07/17 2250 98.1 75 20 146/72 96 Room Air 10/01 2139 89 20 131/69 96 10/01 1714 98.5 83 18 122/71 99 Room Air Intake & Output 10/02 0800 10/02 0000 10/01 1600 Intake Total Output Total Balance Patient 210 lb Weight Weight Reported by Patient Measurement Method Physical Exam General Appearance Alert, Oriented X3, Cooperative Skin No Rashes, No Breakdown, No Significant Lesion Skin Temp/Moisture Exam: Warm/Dry Sepsis Skin Exam (color): Normal for Ethnicity HEENT Atraumatic, PERRLA, EOMI (Dry Mucosa) Neck Supple, No JVD, No thryomegaly, No LAD Cardiovascular Regular Rate, Normal S1, Normal S2, No Murmurs Lungs Clear to Auscultation, Normal Air Movement Abdomen Normal Bowel Sounds (generalized tenderness), Soft Neurological Normal Speech, Strength at 5/5 X4 Ext, Normal Tone, Sensation Intact, Cranial Nerves 3-12 NL Extremities No Clubbing, No Cyanosis, No Edema, Normal Pulses, No Tenderness/ Swelling Vascular Normal Pulses, Pulses Symmetrical Sepsis Cap Refill Exam: <2 Sec Last 24 Hrs of Labs/[place]: Laboratory Tests 10/01/17 2200: Urine Color YEL, Urine Clarity CLEAR, Urine pH 6.5, Ur Specific [place] <= 1.005 , Urine Protein 30 H, Urine Ketones TRACE H, Urine Nitrite NEG, Urine Bilirubin NEG, Urine Urobilinogen 4.0 H, Ur Leukocyte Esterase NEG, Ur Microscopic SEDIMENT EXAMINED, Urine RBC FEW H, Urine WBC RARE, Urine Hemoglobin SMALL H, Urine Glucose NEG 10/01/17 2014: Lactic Acid Cancelled 10/01/17 1720: Anion Gap 12, Estimated GFR > 60, BUN/Creatinine Ratio 18.8, Glucose 227 H, Lactic Acid 1.4, Calcium 7.0 L, Total Bilirubin 1.1, AST 60 H, ALT 24, Alkaline Phosphatase 90, Troponin I < 0.01, Total Protein 6.1 L, Albumin 3.2 L , Globulin 2.9, Albumin/Globulin Ratio 1.1, Amylase 47, Lipase 196, CBC w Diff NO MAN DIFF REQ, RBC 4.29 L, MCV 90.8, MCH 30.1, MCHC 33.1, RDW 14.1, MPV 11.0 H, Gran % 83.4 H, Lymphocytes % 10.4 L, Monocytes % 5.8, Eosinophils % 0.3, Basophils % 0.1, Absolute Granulocytes 9.9 H, Absolute Lymphocytes 1.2, Absolute Monocytes 0.7 H, Absolute Eosinophils 0, Absolute Basophils 0 Assessment/Plan Assessment: Mr. Valdes is a 57 years old gentleman who has a history of DM, HTN, and HLP. He is here with CC of Abd pain that started from Saturday. He has gerneralized abdominal pain and tenderness that also has agreviated his lower back pain. He was not febrile. CT scan of his abdomen showes wxtensive inflamation surrounding 2nd and 3rd protions of duodenum and pancreas. This could be due to IBD. His pancreas looks normal on CT scan and lipase and amylase are normal, so it is less likely to be due to pancreatitis. Appendix is reported normal in CT abdomen, so this not likely to be the source of his abd pain. His WBC is 11.8 which is mildly elevated, this is probably due to the inflamation and not due to infection. So I would think there is no need to start antibiotics for him now. He had BUN/Cr of 15/0.8. Due to the inflamatory process that is onging it is prudent to keep the patient NPO, Surgery consult might be helpful. We need to ask gasteroentrologist to visit the patient. Meanwhile serial abd exam and evaluation is necessary to find out whether it is improving or not. Since the patient has DM, he should be on sliding scale. and we should keep an eye on his BP. As Ranked By This Provider Problem List: 1. Inflammatory bowel disease 2. Diabetes 3. Hypertension 4. Hyperlipidemia 5. Dysphagia Core Measures/Misc (12/02) Acute Coronary Syndrome ACS Diagnosis: No Congestive Heart Failure Congestive Heart Failure Diagnosis No Cerebrovascular Accident CVA/TIA Diagnosis: No VTE (View Protocol) VTE Risk Factors Age>40 No Mechanical VTE Prophylaxis d/t N/A MechProphylax Ordered No VTE Pharm Prophylaxis d/t NA PharmProphylax ordered Sepsis (View protocol) Sepsis Present: No If YES complete Sepsis Event Note If YES complete Sepsis Event Note Florence Manning 10/01/172052: General Information and HPI Allergies/Medications Home Med list Amlodipine Besylate 2.5 MG TABLET 1 TAB PO DAILY BP (Reported) Atorvastatin Calcium 40 MG TABLET 1 TAB PO DAILY CHOLESTEROL (Reported) Empagliflozin/Metformin HCl (Synjardy 12.5-1,000 MG Tablet) 12.5 MG-1,000 MG TABLET 1 TAB PO BID DM (Reported) Fenofibrate,Micronized (Fenofibrate) 200 MG CAPSULE 1 CAP PO DAILY CHOLESTEROL /TRIGLYCERIDES (Reported) Gabapentin 600 MG TABLET 1 TAB PO 4XDAILY NERVE PAIN (Reported) Insulin Detemir (Levemir Flextouch) 100 UNIT/ML (3 ML) INSULN.PEN 30 UNITS SC BID DM (Reported) Losartan Potassium 100 MG TABLET 1 TAB PO DAILY BP (Reported) Ripley-3/Dha/Epa/Fish Oil (Fish Oil 1,000 MG Softgel) (Unknown Strength) CAPSULE (Unknown Dose) PO BID SUPPLEMENT (Reported) Core Measures/Misc (12/02) Sepsis (View protocol) If YES complete Sepsis Event Note If YES complete Sepsis Event Note Resident Review Statement Resident Statement: examined this patient, discussed with international specialist, amended to note Other Findings: Mr Valdes is a 57 year old man w/ a PMHx of hyperlipidemia, hypertension, insulin treated type 2 diabetes( not being on any meds for the last 4 months due to insurance issues, and has not seen PCP in 5 months) came to the hospital with a chief concern of lower abdominal pain x 3 days. Pain started three days ago, located periumbilical and radiated towards b/l lower abdominal area, gradually progressed from severity of 3/10-->8/10, which made him seek medical attention. He went to work on the day of admission, and reported to have a large bowel movement, non bloody. Also reported to have nausea, but no vomiting. Decreased by mouth intake in the last 4 days. No ian, brpbr. No fever, but reported fatigue. No chest pain, shortness of breath. No recent alcohol use. No drug use. No vision problems, joint pains, oral ulcers, rashes, but repored lower back pain which is chronic. No travel, or sick contacts, or any food poisoning. Fam Hx of stage 4 colon cancer in brother at age 59, breast ca in mother. with six healthy children. Last colonoscopy done was in 2015 for scrrening given h/o colon cancer in brother. Also gave h/o of dysphagia to solid and liquid foods, and has a h/o gastroparesis which was not followed up by his GI after his last EGD. At the time of admission-temperature 98.5, pulse rate 83, respiration 18, blood pressure 122/71, pulse ox 99% on room air. General Exam: AAOx3, mild distress, dry mucosa, Skin: No rashes, no breakdown; HEENT: PERRLA, EOMI;Neck: Supple, No JVD; No cervical lymphadenopathy;CVS: Reg Rate, Normal S1,S2, No MGR;Resp: Normal air entry, no ronchi/rales;Abdomen: Soft , RLQ ++ tenderness > other parts of abdomen, Normal Bowel Sounds all four quadrants;Neuro: Normal Speech, Strength 5/5 b/l x 4 extremities, Sensation intact, CN III-XII NL, Reflexes 2+; Extremities: No cyanosis, no pedal edema. Pertinent lab findings: WBC 11.8 (83.4% granulocytes), hemoglobin 12.9, hematocrit 38.9, platelet count 172 Sodium 135, potassium 3.7, chloride 99, bicarbonate 24 BUN 15, creatinine 0.8. Glucose 227. Lactic acid 1.4 Calcium 7.0, albumin 3.2 corrected calcium- 7.64 ( low calcium ? saponification ) Liver enzymes-AST 60(fatty liver ?), ALT 24, alkaline phosphatase 90. Troponin I 0.01. Lipase 196, amylase 47. UA-pending. CT abdomen w/ iv contrast- There is fairly extensive edema and inflammation surrounding the second and third portions of the duodenum as well as the pancreas. Edema tracks anteriorly below the greater curvature of the stomach towards the transverse colon, and tracks inferiorly along the paracolic gutters on both sides, greater on the right. Differential considerations include the sequela of pancreatitis or duodenitis/gastritis with the latter favored given that the pancreas itself looks relatively normal in appearance and that the second and third portions of the duodenum and to a lesser extent the stomach appear thick walled with mucosal hyperenhancement. Diffuse hepatic steatosis. There is intramural fat within the ascending colon and portions of the transverse colon which can be seen as the sequela of inflammatory bowel disease. Last colonocscopy 2015 - Grossly normal colonic mucosa. 2. Small internal hemorrhoids. Last EGD 2012- Possible antral submucosal mass, status post biopsies. Mild duodenitis. Suggestion of gastroparesis, status post gastric biopsies. Normal GE junction and esophageal mucosa without an obvious cause of dysphagia seen, status post random biopsies.Normal small bowel folds, status post biopsies. Problem list: 1. r/o Inflammatory disease of intestines s/o Crohns 2. r/o infectious colitis 3. h/o diabetes 4. h/o hyperlipidemia and hypertension 5. h/o dyspagia. Given inflammation of intestines entirely w/ norml tract segments is s/o Crohns. Given his age which is typical for presentation of Crohns, but UC should be in differential. No e/o of toxic colon. Given the location of tenderness, it makes me worry about appendicitis, but given no radiological e/o of appendicitis gives me some confidence that this can lower in our differential. Also, infectious etiology is possible. He had some e/o duodenitis in the past makes me think that this is a chronic presentation, which is classic in inflammatory bowel disease which needs to be ruled out by the GI to make a formal diagnosis. Plan: 1. Admit to gen med service, but monitor vitals closely 2. Intravenous fluids for now w/ dextrose. 3. Stool cultures after discussing w/ GI 4. Fecal calprotectin after discussing w/ GI 5. No steroids or iv abx 6. Surgical standby, in case he has peritonitis. 7. GI consult for any meds. 8. Pain mgt iv dilaudid 1mg q3prn for severe, tramdadol for moderate and tylenol for mild. 9. NPO 10. Insulin sliding scale. accuchecks. 11. Serial abd exams, and if there any suspicion for worsening clinical state should r/o toxic colon. 12. Please restart all his medications after re-assessing his clinical condition especially anti-hypertnesives, ARB given his h/o metabolic syndrome. Please provide him with a possible outpatient PCP follow up based upon his insurance. Check list: 1. Diet NPO for now. 2. Cosults GI. 3. Meds- please discuss with him and restart all his old meds. 4. DNR/DNI. Discussed with him indetail about his code status and he is very clear about his code status that he would like to be dnr/dni. Annelise WALLACE,Francy 10/01/17 2226: Core Measures/Misc (9/17) Sepsis (View protocol) If YES complete Sepsis Event Note If YES complete Sepsis Event Note Attending MD Review Statement Attending Statement Attending MD Statement: examined this patient, discuss w/resident/PA/FISCAL AGENT, agreed w/resident/PA/FISCAL AGENT, reviewed EMR data (avail), discussed with nursing, amended to note Attending Assessment/Plan: Patient is a 57-year-old male with history of hypertension, diabetes mellitus and dyslipidemia. He has not followed up with his primary care provider due to lack of insurance. Reports being in his usual state of health until 3 days ago when he developed right lower quadrant abdominal discomfort. Pain has progressed over the past few days he came to the emergency room for evaluation. Denies any nausea vomiting. Denies any diarrhea. Denies any bright red blood per rectum. Denies any similar complaints in the past. He has had 2 colonoscopies in the past. The first was done in 2009 on account of diarrhea. He had normal colonoscopy and ileoscopy. He has small internal hemorrhoids. Random biopsies showed no significant histopathologic changes. In 2012 he had EGD done on account of abdominal pain and dysphagia. He was found to have a grossly normal esophageal mucosa and erythematous duodenal bulb suggestive of peritonitis. Biopsy showed no evidence of malignancy. He did show mild chronic and acute inflammation and focal goblet cell metaplasia as well as reactive squamous mucosa. Patient reports that his dysphagia has persisted since but has learned to deal with it. He reports dysphagia to both solids and liquids. He reports drinking lots of fluid to assist with pain going down. Denies weight loss. Denies night sweats. In 2015 he had screening colonoscopy done that showed grossly normal mucosa and small internal hemorrhoids. He arrived afebrile. He had mild leukocytosis on labs. CT scan done today showed fairly extensive edema and inflammation surrounding the second and third portions of duodenum as well as the pancreas. Edema tracks inferiorly below the greater curvature of the stomach towards the transverse colon and inferiorly along the paracolic gutters bilaterally. Pancreas looks relatively normal in appearance. Amylase lipase were within normal limits. Denies any history of alcohol use. Common bile duct and pancreatic duct are normal in size. There is diffuse hepatic steatosis. The appendix is reported as being normal. No free air. No adenopathy. On examination he is in pain. He is hemodynamically stable. Heart sounds are regular. Lungs are clear to auscultation bilaterally. Abdomen is distended but soft. He has diffuse tenderness particularly in the right lower quadrant. No rebound. No guarding. Bowel sounds are present. He has no peripheral edema. Problems: 1. Duodenitis 2. Hypertension 3. Dyslipidemia 4. Mild transaminitis. Plan: -Admit to inpatient medical service. -Keep n.p.o. Hydrate with D5 half normal saline at 100 cc an hour. -Gastroenterology consultation. Patient will undergo upper endoscopy tomorrow. He will required biopsies to evaluate for inflammatory bowel disease. -Pain management with Dilaudid intravenously as needed. -Resume his antihypertensive medications. -DVT prophylaxis with subcutaneous heparin.
--- NOTE | 2017-10-01 22:25 | Admission Certification ---
Admission Certification Certification Statement - As attending physician, I certify that at the time of - admission, based on clinical presentation, severity of - symptoms, need for further diagnostic testing and - therapeutic interventions, and risk of adverse outcomes - without in-hospital treatment, in my clinical assessment, - this patient requires an acute hospital stay for a minimum - of two nights or longer. I have also considered psychsocial - factors such as support system, advanced age, financial - issues, cognitive issues, and failed out-patient treatments, - past re-admission history, safety of patient, and lack of - compliance as applicable. Specific rationale supporting this admission is: Patient requires hospitalization for further management of his duodenitis.
[2017-10-01 22:50] VITALS: BP 146/72
[2017-10-02] VITALS: BP 120/70; BP 146/72
[2017-10-02 06:00] VITALS: BP 138/60
[2017-10-02 08:28] LABS: ABSOLUTE BASOPHIL COUNT 0 /CUMM (0.0-0.2); ABSOLUTE EOSINOPHIL COUNT 0.1 /CUMM (0.0-0.7); ABSOLUTE GRANULOCYTE CT 7.7 /CUMM (1.4-6.5); ABSOLUTE MONOCYTE COUNT 0.7 /CUMM (0.10-0.60); BASOPHIL % 0.4 % (0.0-2.0); EOSINOPHIL % 1.2 % (0-5); GRANULOCYTE % 79.7 % (42.2-75.2); HEMATOCRIT 36.8 % (42-52); MEAN CORPUSCULAR HGB 30.7 PG (27.0-31.0); MEAN CORPUSCULAR HGB CONC 33.8 G/DL (33.0-37.0); MEAN CORPUSCULAR VOLUME 90.8 FL (80.0-94.0); MEAN PLATELET VOLUME 11.5 FL (7.4-10.4); PLATELET COUNT 189 /CUMM (130-400); RBC DISTRIBUTION WIDTH 14.3 % (11.5-14.5); RED BLOOD CELL CT 4.06 /CUMM (4.70-6.10); WHITE BLOOD CELL COUNT 9.6 /CUMM (4.8-10.8)
--- NOTE | 2017-10-02 08:43 | PN- Housestaff ---
Axel Nowak 10/02/17 0843: Subjective Follow-up For: Abdominal Pain Subjective: Patient seen and evaluated bedside. Patient states that he was admitted overnight, for abdominal pain. Patient states he had multiple workups in the past, has not had any conclusive diagnoses. Patient states that he follows up with [place] outpatient. Patient denied fevers/chills/night sweats, denied vomitus, denied blood in the stool, denied diarrhea. Patient states that he has been dealing with this pain for a while, and is gotten worse recently. Review of systems negative. Review of Systems Constitutional: Reports: see HPI. Objective Last 24 Hrs of Vital Signs/I&O Vital Signs Date Time Temp Pulse Resp B/P B/P Pulse O2 O2 Flow FiO2 Mean Ox Delivery Rate 10/02 1438 98.0 72 22 128/70 97 10/02 0934 67 124/76 10/02 0800 97 Room Air 10/02 0600 98.9 81 20 138/60 95 Room Air 10/02 0000 98.1 75 12 146/72 96 10/01 2250 98.1 75 20 146/72 96 Room Air 10/01 2139 89 20 131/69 96 10/01 1714 98.5 83 18 122/71 99 Room Air Intake & Output 10/02 1600 10/02 0800 10/02 0000 Intake Total 700 800 0 Output Total 550 350 Balance 700 250 -350 Intake, IV 700 800 Intake, Oral 0 0 Output, Urine 550 350 Patient 210 lb Weight Weight Reported by Patient Measurement Method Physical Exam General Appearance: Alert, Oriented X3, Cooperative, No Acute Distress Skin: No Rashes Cardiovascular: Regular Rate, Normal S1, Normal S2 Lungs: Clear to Auscultation, Normal Air Movement Abdomen: tenderness, b/l lower quadrants; nonperitoneal Neurological: Strength at 5/5 X4 Ext, Sensation Intact Current Medications: Current Medications Sig/Rene Start time Last Medication Dose Route Stop Time Status Admin Acetaminophen 500 MG Q8P PRN 10/01 2200 AC PO Acetaminophen 1,000 MG ONCE ONE 10/01 1745 DC 10/01 N/A 1 UNIT IV 10/01 1759 1733 Acetaminophen 0 .STK-MED ONE 10/01 1731 DC IV Dextrose/Sodium 1,000 ML Q10H 10/01 2145 AC 10/02 Chloride IV 0830 Famotidine 20 MG BID 10/02 1442 UNVr IV Heparin Sodium 5,000 UNIT Q8 10/01 220 AC (Porcine) SC Hydromorphone HCl 1 MG Q3P PRN 10/01 2144 AC 10/02 IV 1246 Hydromorphone HCl 0 .STK-MED ONE 10/01 2141 DC .ROUTE Insulin Human Regular 1 UNITS .STK-MED ONE 10/02 06 DC IV 10/02 0619 Insulin Human Regular 0 Q6 10/01 2359 AC 10/02 SC 1207 Losartan Potassium 100 MG DAILY 10/02 09 AC 10/02 PO 0934 Pantoprazole Sodium 40 MG DAILY 10/02 09 DC 10/02 IV 0834 Pantoprazole Sodium 0 .STK-MED ONE 10/01 2018 DC IV Pantoprazole Sodium 40 MG ONCE ONE 10/01 2014 DC 10/01 IV 10/01 Tramadol HCl 50 MG Q8P PRN 10/01 2199 AC PO Last 24 Hrs of Lab/[place] Results Last 24 Hrs of Labs/Mics: Laboratory Tests 10/02/17626: Anion Gap 11, Estimated GFR > 60, BUN/Creatinine Ratio 14.3, Triglycerides 713 H, Cholesterol 283 H, LDL Cholesterol Direct 63.77, LDL Cholesterol, Calc ND, HDL Cholesterol 21 L, Cholesterol/HDL Ratio 14 H, CBC w Diff NO MAN DIFF REQ, RBC 4.06 L, MCV 90.8, MCH 30.7, MCHC 33.8, RDW 14.3, MPV 11.5 H, Gran % 79.7 H, Lymphocytes % 10.9 L, Monocytes % 7.8, Eosinophils % 1.2, Basophils % 0.4, Absolute Granulocytes 7.7 H, Absolute Lymphocytes 1.0 L, Absolute Monocytes 0.7 H, Absolute Eosinophils 0.1, Absolute Basophils 0 10/01/172199: Urine Color YEL, Urine Clarity CLEAR, Urine pH 6.5, Ur Specific [place] <= 1.005 , Urine Protein 30 H, Urine Ketones TRACE H, Urine Nitrite NEG, Urine Bilirubin NEG, Urine Urobilinogen 4.0 H, Ur Leukocyte Esterase NEG, Ur Microscopic SEDIMENT EXAMINED, Urine RBC FEW H, Urine WBC RARE, Urine Hemoglobin SMALL H, Urine Glucose NEG 10/01/172013: Lactic Acid Cancelled 10/01/17 1720: Anion Gap 12, Estimated GFR > 60, BUN/Creatinine Ratio 18.8, Glucose 227 H, Lactic Acid 1.4, Calcium 7.0 L, Total Bilirubin 1.1, AST 60 H, ALT 24, Alkaline Phosphatase 90, Troponin I < 0.01, Total Protein 6.1 L, Albumin 3.2 L , Globulin 2.9, Albumin/Globulin Ratio 1.1, Amylase 47, Lipase 196, CBC w Diff NO MAN DIFF REQ, RBC 4.29 L, MCV 90.8, MCH 30.1, MCHC 33.1, RDW 14.1, MPV 11.0 H, Gran % 83.4 H, Lymphocytes % 10.4 L, Monocytes % 5.8, Eosinophils % 0.3, Basophils % 0.1, Absolute Granulocytes 9.9 H, Absolute Lymphocytes 1.2, Absolute Monocytes 0.7 H, Absolute Eosinophils 0, Absolute Basophils 0 Assessment/Plan Assessment: This is a 57yo m pmhx Hyperlipidemia, HTN, T2DM on insulin, without insurance and has not taken medications for over 4 months who presents with lower abdominal pain x3 days, admitted with Abdominal Pain r/o IBD, going for endoscopy today #Duodenitis -NPO for upper endoscopy -D5 1/2 NS 100cc/hour -GI consult appreciated. Added on Triglycerides per GI -Will restart on diet pending GI -CT shows extensive edema and inflammation surrounding the second and third portions of the duodenum as well as the pancreas,There is intramural fat within the ascending colon and portions of the transverse colon -Pain management - per pathway #W/O Insurance -Will follow closely with case management GI/DVT PPx IV access DNR/DNI NPO-Will restart diet post endoscopy Disposition- to home Problem List: 1. Abnormal CT of the abdomen Pain Ratin Pain Location: b/l lower quandrants Pain Goal: Pain 7 or less Pain Plan: per pathway Tomorrow's Labs & Rationales: Abraham Banda 10/02/17 1152: Attending MD Review Statement Attending Statement Attending MD Statement: examined this patient, discuss w/resident/PA/[employer]ACHINE, agreed w/resident/PA/[employer] MACHINE, discussed with family, reviewed EMR data (avail), discussed with nursing, discussed with case mgmt, reviewed images, amended to note Attending Assessment/Plan: Patient seen/examined bedside. Patient denies any new complaints. Hemodymaically stable. GI consult. Plan for EGD as per GI. NPO for now. c/w IVF. Follow clinically. Continue home meds. gi/dvt prophylaxis
--- NOTE | 2017-10-02 12:55 | Cons- Gastroenterology ---
General Information and HPI Consulting Request Date of Consult: 10/02/17 Requested By: Abraham Flaherty MD Reason for Consult: I was notified by the hospitalist service this morning of a request for a GI consult to assess abdominal pain and abnormal CT (*imaging studies were personally reviewed by myself with Dr. Malone, of [facility], this a.m., prior to the GI consult). Source of Information: patient, family (pt's , Marsha), old records Exam Limitations: no limitations History of Present Illness: 57 y/o male, HTN, DM ("neuropathy"-> previously on ALE), HLD, who presented to the [place] [facility] 10/01/17 at 5:06 p.m., complaining of severe lower abdominal pain & bloating x 3 days, ranging from "3 out of 10, to 8 out of 10". 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 There was no obstipation, tenesmus, diarrhea, rectal bleeding, or melena. He had nausea and mild bilious vomiting, with decreased appetite. There was no hematemesis, early satiety, odynophagia, or GERD. He noted chronic dysphagia to solids & liquids x years, previously worked up by Dr. Montana (patent esophageal lumen with stable bxs, no EOE or Garrett's). He denied any fevers, chills, jaundice, weight loss, rashes, or arthralgias. He denied any illicit drugs or EtOH. 60 pk yr cigarette smoker, D/C 2014. He denied any NSAIDS ( "allergic to Ibuprofen"), sick contacts, raw food ingestion, or point source. He denied any symptoms of UTI or URI. He denied any CP or SOB. Upon arrival, BP 122/71, P 83, R 18, T 98.5, O2 sat RA 99%. He was given Tylenol & IV Protonix in the ER. He was NPO, on IVF: D5 1/ NS @ 100cc/hr. *Please note, the patient has a history of mixed hyperlipidemia, predominantly hypertriglyceridemia, with 03/25/08: *TG 1458. 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 *No TG were checked on admission. He remotely had an umbilical hernia repair approximately 2007. He denied any additional abdominal surgery. FHx significant for 1 brother- early onset colon Ca onset 56, M- breast Ca 65, pt's son- brain tumor 30. There is no FHx of IBD or pancreatitis. *The patient has had a previous extensive GI workup by Dr. Montana: 08/12/09: Colonoscopy to TI (for diarrhea)-normal to TI with random bxs of TI & colon- negative. 06/20/12: EGD to D2 (for abd pain, bloating, dyspepsia, & dysphagia)-possible antral submucosal mass, mild duodenitis, suggestion of ? gastroparesis, normal GEJ & esophageal mucosa, without any obvious cause for dysphagia, normal small bowel folds- bxs duod- nl villi, bxs antral submucosal mass- benign gastric mucosa with focal mild glandular dilatation, HP negative, bxs gastric body- nl gastric mucosa, HP-neg, bxs GEJ- benign gastric mucosa with mild focal mild acute inflammation, HP-neg, focal goblet cell metaplasia & adj rx squamous mucosa, neg EOE, bxs lower esoph- squamous mucosa with rx & hyperplastic change, neg EOE. 06/24/12: Complete abdominl sono- fatty liver & GB sludge, without gallstones or dilated ducts. 06/24/12: GES-normal gastric emptying for solid meal at 4 hours. 09/02/12: EGD/EUS per Dr. Hare (for evaluation of 4 cm antral submucosal mass towards lesser curve)- normal-appearing gallbladder causing extrinsic compression of distal gastric antrum, otherwise normal EUS to D2, including normal pancreas, distal biliary tract, & surrounding structures. 07/01/15: Colonoscopy to cecum- normal study xc small int hemorrhoids. (*A follow-up colonoscopy was advised in 5 years, namely 06/2020, as the patient 's brother had early onset colon Ca, at age 56). 10/01/17: Admission labs- WBC 11.8 (83% gran/10 gran), H/H 12.9/38.9, MCV 90.8, RDW 14.1, PLT 172, glu 227, BUN/Cr 15/0., GFR > 60, Na 135, K 3.7, HCO3 24, AG 12, lactate 1.4, nl A/L 47/196, Ca 7.0, albumin 3.2, globulin 2.9, TBil 1.1, alk phos 90, AST 60, ALT 24, troponin < 0.01 10/01/17: U/A clear yellow, < 1.005, 6.5, tr ket, sm Hgb, 30+ prot, 4.0 urobil; neg nitrit, neg esterase. 10/02/17: WBC 9.6, H/H 12.4/36.8, PLT 189, BUN/Cr 10/0.7, GFR > 60, Na 138, K 3.9, HCO3 27, AG 11. No EKG was done on admission. 10/01/17: CT ABD & PELVIS W IV CONTRAST (*personally reviewed by myself with Dr. Malone, of [facility] on 10/02/17)- IMPRESSION: - There is fairly extensive edema and inflammation surrounding the second and third portions of the duodenum as well as the pancreas. Edema tracks anteriorly below the greater curvature of the stomach towards the transverse colon, and tracks inferiorly along the paracolic gutters on both sides, greater on the right. Differential considerations include the sequela of pancreatitis or duodenitis/gastritis with the latter favored given that the pancreas itself looks relatively normal in appearance and that the second and third portions of the duodenum and to a lesser extent the stomach appear thick walled with mucosal hyperenhancement. Recommend correlation with serum amylase/lipase. - Diffuse hepatic steatosis. Normal CBD, PD, PV, GB, spleen, & adrenals. B/L renal cysts. - There is intramural fat within the ascending colon and portions of the transverse colon which can be seen as the sequela of inflammatory bowel disease. Recommend correlation with the patient's history. Diverticulosis coli without acute diverticulitis. No adenopathy. -ASHD of aortoiliac vessels. Central prostate calcifications. Allergies/Medications Allergies: Coded Allergies: ibuprofen (HIVES, ITCHY, GI UPSET 09/13/15) Home Med List: Amlodipine Besylate 2.5 MG TABLET 1 TAB PO DAILY BP (Reported) Atorvastatin Calcium 40 MG TABLET 1 TAB PO DAILY CHOLESTEROL (Reported) Empagliflozin/Metformin HCl (Synjardy 12.5-1,000 MG Tablet) 12.5 MG-1,000 MG TABLET 1 TAB PO BID DM (Reported) Fenofibrate,Micronized (Fenofibrate) 200 MG CAPSULE 1 CAP PO DAILY CHOLESTEROL /TRIGLYCERIDES (Reported) Gabapentin 600 MG TABLET 1 TAB PO 4XDAILY NERVE PAIN (Reported) Insulin Detemir (Levemir Flextouch) 100 UNIT/ML (3 ML) INSULN.PEN 30 UNITS SC BID DM (Reported) Losartan Potassium 100 MG TABLET 1 TAB PO DAILY BP (Reported) Goessel-3/Dha/Epa/Fish Oil (Fish Oil 1,000 MG Softgel) (Unknown Strength) CAPSULE (Unknown Dose) PO BID SUPPLEMENT (Reported) Current Medications: Current Medications Sig/Rene Start time Last Medication Dose Route Stop Time Status Admin Acetaminophen 500 MG Q8P PRN 10/01 2200 AC PO Acetaminophen 1,000 MG ONCE ONE 10/01 1745 DC 10/01 N/A 1 UNIT IV 10/01 1759 1733 Acetaminophen 0 .STK-MED ONE 10/01 1731 DC IV Dextrose/Sodium 1,000 ML Q10H 10/01 2145 AC 10/02 Chloride IV 0830 Heparin Sodium 5,000 UNIT Q8 10/01 2200 AC (Porcine) SC Hydromorphone HCl 1 MG Q3P PRN 10/01 2145 AC 10/02 IV 1246 Hydromorphone HCl 0 .STK-MED ONE 10/01 2142 DC .ROUTE Insulin Human Regular 0 Q6 10/01 2359 AC 10/02 SC 1207 Losartan Potassium 100 MG DAILY 10/02 0900 AC 10/02 PO 0934 Pantoprazole Sodium 40 MG DAILY 10/02 0900 AC 10/02 IV 0834 Pantoprazole Sodium 0 .STK-MED ONE 10/01 2018 DC IV Pantoprazole Sodium 40 MG ONCE ONE 10/01 2014 DC 10/01 IV 10/01 Tramadol HCl 50 MG Q8P PRN 10/01 2200 AC PO Past History Travel History Traveled to [place] past 21 day No Medical History Blood Transfusion Hx: No Neurological: peripheral neuropathy EENT: NONE Cardiovascular: hypertension, hyperlipidemia Respiratory: NONE Gastrointestinal: irritable bowel syndrome Hepatic: fatty liver Renal: NONE Musculoskeletal: NONE Psychiatric: NONE Endocrine: diabetes, HLD, vanessa TG Blood Disorders: NONE Cancer(s): NONE 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 Age 59. FH: colon cancer in first degree relative <60 years old, Onset: 50-60. MOTHER, , Age 65; Cause: Breast CA. SON (brain tumor). FATHER ([employer]). Age 83. Relation not specified for: FH: brain tumor FH: breast cancer Psychosocial History Where Do You Live? Home Who Do You Live With? spouse Services at Home: None Primary Language: Belarusian Smoking Status: Former Smoker (Now smokes E-cig; ex 60pkyr) ETOH Use: denies use Illicit Drug Use: denies illicit drug use Living Will? no Power of Senior Living Sales Counselor/HCP? no Other Social History: to Marsha. Ex-60 pk yr cigarette smoker, D/C 2014, no EtOH or illicit drugs. 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 6 kids- [employer], including 1 son post remote brain tumor. Pt is 1 of 4 kids (2 bros & 1 sis), including 1 bro with stage IV colon Ca, onset 56. Functional Ability ADLs Independent: dressing, eating, toileting, bathing. Ambulation: independent IADLs Independent: shopping, housework, finances, food prep, telephone, transportation , medication admin. 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 EENTM: Denies: blurred vision, double vision, visual changes, eye pain, eye drainage, eye tearing, icterus, ear discharge, ear pain, ear redness, hearing changes, nasal congestion, epistaxis, nasal pain, throat pain, throat swelling, mouth pain, tooth pain. Cardiovascular: Denies: chest pain, edema, orthopena, palpitations, peripheral edema, syncope. Respiratory: Denies: cough, hemoptysis, orthopnea, short of breath, sputum production, stridor, wheezing. GI: Reports: abdominal pain, bloating, nausea, vomiting (resolved). Denies: constipation, diarrhea, distention, bowel incontinence, melena, bloody stool, changes in stool, steatorrhea. Genitourinary: Denies: discharge, dysuria, frequency, hematuria, hesitation, nocturia, pain, urgency. Musculoskeletal: Denies: back pain, gout, joint pain, joint swelling, muscle pain, muscle stiffness, neck pain. Skin: Denies: cysts, change in skin color, change in hair/nails, dryness, erythema, jaundice, lesions, lymphangitis, lumps, moles, rash. Neurological/Psychological: Reports: numbness (periph neuropathy). Denies: anxiety, ataxia, cognitive dysfunction, confusion, depressed, dementia, emotional problems, headache, paresthesia, pre-existing deficit, petit mal seizures, tingling, tremors, tonic- clonic seizures, unable to move lower ext, unable to move upper ext, weakness, other. Hematologic/Endocrine: Denies: bruising, bleeding, polyuria, polydipsia. Immunologic/Allergic: Denies: splenectomy, HIV/AIDS, lymphadenopathy. All Other Systems: Reviewed and Negative Exam & Diagnostic Data Vital Signs and I&O Vital Signs Date Time Temp Pulse Resp B/P B/P Pulse O2 O2 Flow FiO2 Mean Ox Delivery Rate 10/02 0934 67 124/76 10/02 0800 97 Room Air 10/02 0600 98.9 81 20 138/60 95 Room Air 10/02 0000 98.1 75 12 146/72 96 10/01 2250 98.1 75 20 146/72 96 Room Air 10/01 2139 89 20 131/69 96 10/01 1714 98.5 83 18 122/71 99 Room Air Intake & Output 10/02 1600 10/02 0400 10/01 1600 10/01 0400 09/30 1600 09/30 0400 Intake Total 800 0 Output Total 550 350 Balance 250 -350 Intake, IV 800 Intake, Oral 0 0 Output, Urine 550 350 Patient 210 lb Weight Weight Reported by Patient Measurement Method Physical Exam: Well-developed, well-nourished male, looking older than his stated age, in no apparent distress. Non-toxic appearing. Sclera anicteric. Conjunctiva pink. Oropharynx clear. Edentulous. No oral thrush. No aphthous ulcers. There is no adenopathy, thyromegaly, or JVD. No peripheral stigmata of inflammatory bowel disease or chronic liver disease on exam. No spiders on the anterior abdominal wall. No gynecomastia. No CVA tenderness. No spine tenderness. Lungs: clear to A&P, with slightly prolonged expiratory phase. No wheezing, rales, or rhonchi. Heart exam: regular rate rhythm, S1 and S2, without any murmur. Abdominal exam: normal bowel sounds, soft belly, mildly distended, right-mid > epigastric tenderness, without guarding or rebound. Negative Hernandez sign. No mass. No organomegaly. No fluid shift. No pulsatile mass. No epigastric bruit. Digital rectal exam: refused by patient. Extremities without C, C, or E. Mild DJD. No palpable cords. No palmar erythema. No Dupuytren's contractures. Distal pulses 2 + bilaterally. DTRs 2+ bilaterally. Right handed. CN II-XII intact. Motor 5/5 B /L. Alert and oriented x 3. No tremor. No asterixis. A detailed exam for peripheral neuropathy was deferred, but reportedly is present by history. Results Pertinent Lab Results: Laboratory Tests 10/02 10/01 0627 2200 Chemistry Sodium (137 - 145 mmol/L) 138 Potassium (3.5 - 5.1 mmol/L) 3.9 Chloride (98 - 107 mmol/L) 100 Carbon Dioxide (22 - 30 mmol/L) 27 Anion Gap (5 - 16) 11 BUN (9 - 20 mg/dL) 10 Creatinine (0.7 - 1.2 mg/dL) 0.7 Estimated GFR (>60 ml/min) > 60 BUN/Creatinine Ratio (7 - 25 %) 14.3 Hematology CBC w Diff NO MAN DIFF REQ WBC (4.8 - 10.8 /CUMM) 9.6 RBC (4.70 - 6.10 /CUMM) 4.06 L Hgb (14.0 - 18.0 G/DL) 12.4 L Hct (42 - 52 %) 36.8 L MCV (80.0 - 94.0 FL) 90.8 MCH (27.0 - 31.0 PG) 30.7 MCHC (33.0 - 37.0 G/DL) 33.8 RDW (11.5 - 14.5 %) 14.3 Plt Count (130 - 400 /CUMM) 189 MPV (7.4 - 10.4 FL) 11.5 H Gran % (42.2 - 75.2 %) 79.7 H Lymphocytes % (20.5 - 51.1 %) 10.9 L Monocytes % (1.7 - 9.3 %) 7.8 Eosinophils % (0 - 5 %) 1.2 Basophils % (0.0 - 2.0 %) 0.4 Absolute Granulocytes (1.4 - 6.5 /CUMM) 7.7 H Absolute Lymphocytes (1.2 - 3.4 /CUMM) 1.0 L Absolute Monocytes (0.10 - 0.60 /CUMM) 0.7 H Absolute Eosinophils (0.0 - 0.7 /CUMM) 0.1 Absolute Basophils (0.0 - 0.2 /CUMM) 0 Urines Urine Color (YEL,AMB,STR) YEL Urine Clarity (CLEAR) CLEAR Urine pH (5.0 - 8.0) 6.5 Ur Specific [place] (1.001 - 1.035) <= 1.005 Urine Protein (NEG,<30 MG/DL) 30 H Urine Ketones (NEG) TRACE H Urine Nitrite (NEG) NEG Urine Bilirubin (NEG) NEG Urine Urobilinogen (0.1 - 1.0 EU/dl) 4.0 H Ur Leukocyte Esterase (NEG) NEG Ur Microscopic SEDIMENT EXAMINED Urine RBC (0 - 5 /HPF) FEW H Urine WBC (0 - 2 /HPF) RARE Urine Hemoglobin (NEG) SMALL H Urine Glucose (N MG/DL) NEG 10/01 1720 Chemistry Sodium (137 - 145 mmol/L) 135 L Potassium (3.5 - 5.1 mmol/L) 3.7 Chloride (98 - 107 mmol/L) 99 Carbon Dioxide (22 - 30 mmol/L) 24 Anion Gap (5 - 16) 12 BUN (9 - 20 mg/dL) 15 Creatinine (0.7 - 1.2 mg/dL) 0.8 Estimated GFR (>60 ml/min) > 60 BUN/Creatinine Ratio (7 - 25 %) 18.8 Glucose (65 - 99 mg/dL) 227 H Lactic Acid (0.7 - 2.1 mmol/L) Cancelled 1.4 Calcium (8.4 - 10.2 mg/dL) 7.0 L Total Bilirubin (0.2 - 1.3 mg/dL) 1.1 AST (17 - 59 U/L) 60 H ALT (21 - 72 U/L) 24 Alkaline Phosphatase (< 127 U/L) 90 Troponin I (<0.11 ng/ml) < 0.01 Total Protein (6.3 - 8.2 g/dL) 6.1 L Albumin (3.5 - 5.0 g/dL) 3.2 L Globulin (1.9 - 4.2 gm/dL) 2.9 Albumin/Globulin Ratio (1.1 - 2.2 %) 1.1 Amylase (30 - 110 U/L) 47 Lipase (23 - 300 U/L) 196 Hematology CBC w Diff NO MAN DIFF REQ WBC (4.8 - 10.8 /CUMM) 11.8 H RBC (4.70 - 6.10 /CUMM) 4.29 L Hgb (14.0 - 18.0 G/DL) 12.9 L Hct (42 - 52 %) 38.9 L MCV (80.0 - 94.0 FL) 90.8 MCH (27.0 - 31.0 PG) 30.1 MCHC (33.0 - 37.0 G/DL) 33.1 RDW (11.5 - 14.5 %) 14.1 Plt Count (130 - 400 /CUMM) 172 MPV (7.4 - 10.4 FL) 11.0 H Gran % (42.2 - 75.2 %) 83.4 H Lymphocytes % (20.5 - 51.1 %) 10.4 L Monocytes % (1.7 - 9.3 %) 5.8 Eosinophils % (0 - 5 %) 0.3 Basophils % (0.0 - 2.0 %) 0.1 Absolute Granulocytes (1.4 - 6.5 /CUMM) 9.9 H Absolute Lymphocytes (1.2 - 3.4 /CUMM) 1.2 Absolute Monocytes (0.10 - 0.60 /CUMM) 0.7 H Absolute Eosinophils (0.0 - 0.7 /CUMM) 0 Absolute Basophils (0.0 - 0.2 /CUMM) 0 Imaging/Other Studies: No EKG was done on admission. 10/01/17: CT ABD & PELVIS W IV CONTRAST (*personally reviewed by myself with Dr. Malone, of [facility] on 10/02/17)- IMPRESSION: - There is fairly extensive edema and inflammation surrounding the second and third portions of the duodenum as well as the pancreas. Edema tracks anteriorly below the greater curvature of the stomach towards the transverse colon, and tracks inferiorly along the paracolic gutters on both sides, greater on the right. Differential considerations include the sequela of pancreatitis or duodenitis/gastritis with the latter favored given that the pancreas itself looks relatively normal in appearance and that the second and third portions of the duodenum and to a lesser extent the stomach appear thick walled with mucosal hyperenhancement. Recommend correlation with serum amylase/lipase. - Diffuse hepatic steatosis. Normal CBD, PD, PV, GB, spleen, & adrenals. B/L renal cysts. - There is intramural fat within the ascending colon and portions of the transverse colon which can be seen as the sequela of inflammatory bowel disease. Recommend correlation with the patient's history. Diverticulosis coli without acute diverticulitis. No adenopathy. -ASHD of aortoiliac vessels. Central prostate calcifications. Assessment/Plan Assessment/Recommendations: 57 y/o male, HTN, DM ("neuropathy"-> previously on ALE), HLD, who presented to the [place] ER 10/01/17 at 5:06 p.m., complaining of severe lower abdominal pain & bloating x 3 days, ranging from "3 out of 10, to 8 out of 10". 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 There was no obstipation, tenesmus, diarrhea, rectal bleeding, or melena. He had nausea and mild bilious vomiting, with decreased appetite. There was no hematemesis, early satiety, odynophagia, or GERD. He noted chronic dysphagia to solids & liquids x years, previously worked up by Dr. Montana (patent esophageal lumen with stable bxs, no EOE or Garrett's). He denied any fevers, chills, jaundice, weight loss, rashes, or arthralgias. He denied any illicit drugs or EtOH. 60 pk yr cigarette smoker, D/C 2014. He denied any NSAIDS ( "allergic to Ibuprofen"), sick contacts, raw food ingestion, or point source. He denied any symptoms of UTI or URI. He denied any CP or SOB. Upon arrival, BP 122/71, P 83, R 18, T 98.5, O2 sat RA 99%. He was given Tylenol & IV Protonix in the ER. He was NPO, on IVF: D5 1/2 NS @ 100cc/hr. *Please note, the patient has a history of mixed hyperlipidemia, predominantly hypertriglyceridemia, with 03/25/08: *TG 1458. 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 *No TG were checked on admission. He remotely had an umbilical hernia repair approximately 2007. He denied any additional abdominal surgery. FHx significant for 1 brother- early onset colon Ca onset 56, M- breast Ca 65, pt's son- brain tumor 30. There is no FHx of IBD or pancreatitis. *The patient has had a previous extensive GI workup by Dr. Montana: 08/12/09: Colonoscopy to TI (for diarrhea)-normal to TI with random bxs of TI & colon- negative. 06/20/12: EGD to D2 (for abd pain, bloating, dyspepsia, & dysphagia)-possible antral submucosal mass, mild duodenitis, suggestion of ? gastroparesis, normal GEJ & esophageal mucosa, without any obvious cause for dysphagia, normal small bowel folds- bxs duod- nl villi, bxs antral submucosal mass- benign gastric mucosa with focal mild glandular dilatation, HP negative, bxs gastric body- nl gastric mucosa, HP-neg, bxs GEJ- benign gastric mucosa with mild focal mild acute inflammation, HP-neg, focal goblet cell metaplasia & adj rx squamous mucosa, neg EOE, bxs lower esoph- squamous mucosa with rx & hyperplastic change, neg EOE. 06/24/12: Complete abdominl sono- fatty liver & GB sludge, without gallstones or dilated ducts. 06/24/12: GES-normal gastric emptying for solid meal at 4 hours. 09/02/12: EGD/EUS per Dr. Hare (for evaluation of 4 cm antral submucosal mass towards lesser curve)- normal-appearing gallbladder causing extrinsic compression of distal gastric antrum, otherwise normal EUS to D2, including normal pancreas, distal biliary tract, & surrounding structures. 07/01/15: Colonoscopy to cecum- normal study xc small int hemorrhoids. (*A follow-up colonoscopy was advised in 5 years, namely 06/2020, as the patient 's brother had early onset colon Ca, at age 56). 10/01/17: Admission labs- WBC 11.8 (83% gran/10 gran), H/H 12.9/38.9, MCV 90.8, RDW 14.1, PLT 172, glu 227, BUN/Cr 15/0., GFR > 60, Na 135, K 3.7, HCO3 24, AG 12, lactate 1.4, nl A/L 47/196, Ca 7.0, albumin 3.2, globulin 2.9, TBil 1.1, alk phos 90, AST 60, ALT 24, troponin < 0.01 10/01/17: U/A clear yellow, < 1.005, 6.5, tr ket, sm Hgb, 30+ prot, 4.0 urobil; neg nitrit, neg esterase. 10/02/17: WBC 9.6, H/H 12.4/36.8, PLT 189, BUN/Cr 10/0.7, GFR > 60, Na 138, K 3.9, HCO3 27, AG 11. No EKG was done on admission. 10/01/17: CT ABD & PELVIS W IV CONTRAST (*personally reviewed by myself with Dr. Malone, of [facility] on 10/02/17)- IMPRESSION: - There is fairly extensive edema and inflammation surrounding the second and third portions of the duodenum as well as the pancreas. Edema tracks anteriorly below the greater curvature of the stomach towards the transverse colon, and tracks inferiorly along the paracolic gutters on both sides, greater on the right. Differential considerations include the sequela of pancreatitis or duodenitis/gastritis with the latter favored given that the pancreas itself looks relatively normal in appearance and that the second and third portions of the duodenum and to a lesser extent the stomach appear thick walled with mucosal hyperenhancement. Recommend correlation with serum amylase/lipase. - Diffuse hepatic steatosis. Normal CBD, PD, PV, GB, spleen, & adrenals. B/L renal cysts. - There is intramural fat within the ascending colon and portions of the transverse colon which can be seen as the sequela of inflammatory bowel disease. Recommend correlation with the patient's history. Diverticulosis coli without acute diverticulitis. No adenopathy. -ASHD of aortoiliac vessels. Central prostate calcifications. *As of 10/02/17, it was difficult to say whether the patient's abdominal pain and abnormal CT findings were sequelae of pancreatitis vs. duodenitis/gastritis. The patient has had a previous extensive GI workup as above, per Dr. Montana, including multiple EGD, EUS, and colonoscopy. Nothing in the past has pointed to IBD, which would be less likely clinically. The patient had no diarrhea. He had no peritoneal signs. There was no free air on admission imaging studies, which I reviewed with Dr. Malone, of [facility]. 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 A TG level had not been repeated on admission. Although his admission lipase was normal, it is possible that if his serum was very lipemic, this could blunt the lipase level. It is possible that the nonspecific inflammation in the transverse colon could be reactive in nature from possible pancreatitis, as well. Rule out gastroenteritis, although no significant diarrhea. Again, IBD less likely clinically. He was getting hungry and his appetite was improving. Despite the history of peripheral neuropathy, previous gastric scintiscan- negative for gastroparesis. *SUGGEST- NPO. IVF. IV Protonix 40 mg daily. Zofran as needed. Add TG level to admission labs. Doubt need for ESR, CRP, or fecal calprotectin. For EGD later today. The risks & benefits of EGD were discussed with the patient in the presence of his , Marsha, & he wished to proceed. It is possible the remainder of the GI workup can be done as an outpatient. By dates, the patient is due for a surveillance colonoscopy with Dr. Montana in 06/2020, based on the +FHx of early onset colon Ca (pt's bro- onset 56), unless this has to be moved up sooner, based on clinical grounds. He was urged to resume his numerous outpt medications, as he has numerous comorbidities. He had mild fatty liver on imaging studies, most likely related to his HTN, DM, & HLD. He had no laboratory, clinical, or imaging studies suggestive of cirrhosis- doubt need for FibroScan. Consider adding Vit E 800 IU po daily for fatty liver, but this works less well in DM patiens. DVT prophylaxis. Workup of other numerous issues and abnormal urinary sediment, as per medical team. The above was discussed with the patient, the patient's , Marsha, & the patient's RN. Further GI recommendations to follow, based on clinical course. Problem List: 1. Abdominal pain 2. Nausea & vomiting 3. Abnormal CT of the abdomen 4. Family history of malignant neoplasm of colon in first degree relative diagnosed when younger than 60 years of age 5. Dysphagia 6. Hyperlipidemia Copies To: Annelise WALLACE,Francy; Yamileth WALLACE,Daryl; Reynold WALLACE,Abraham; Rubén WALLACE,Panchito Consult Acknowledgment - Thank you for your consult request.
[2017-10-02 14:38] VITALS: BP 128/70
--- NOTE | 2017-10-02 15:12 | Proc Note Endoscopy ---
Endoscopy Procedure Medical History: unchanged Mental Status: alert/oriented Heart/Lung Eval Prior to Sedation: within normal limits Candidate for Sedation? Yes Procedure Date: 10/02/17 Procedure Type: EGD w/biopsy Stripper Black And White: TASHIA BOUCHER MD ASA Classification: III Indications: INDX: (*Please refer to my 10/02/17: GI consult, done in coverage for Dr. Montana). 57 y/o male, abdominal pain, nausea vomiting, abnormal CT, chronic dysphagia. 57 y/o male, HTN, DM ("neuropathy"-> previously on ALE), HLD, who presented to the [facility] 10/01/17 at 5:06 p.m., complaining of severe lower abdominal pain & bloating x 3 days, ranging from "3 out of 10, to 8 out of 10". He was constipated with BM 3-4 days [employer], followed by another BM on the day of admission. There was no obstipation, tenesmus, diarrhea, rectal bleeding, or melena. He had nausea and mild bilious vomiting, with decreased appetite. There was no hematemesis, early satiety, odynophagia, or GERD. He noted chronic dysphagia to solids & liquids x years, previously worked up by Dr. Montana (patent esophageal lumen with stable bxs, no EOE or Garrett's). He denied any fevers, chills, jaundice, weight loss, rashes, or arthralgias. He denied any illicit drugs or EtOH. 60 pk yr cigarette smoker, D/C 2014. He denied any NSAIDS ( "allergic to Ibuprofen"), sick contacts, raw food ingestion, or point source. He denied any symptoms of UTI or URI. He denied any CP or SOB. Upon arrival, BP 122/71, P 83, R 18, T 98.5, O2 sat RA 99%. He was given Tylenol & IV Protonix in the ER. He was NPO, on IVF: D5 1/2 NS @ 100cc/hr. *Please note, the patient has a history of mixed hyperlipidemia, predominantly hypertriglyceridemia, with 03/25/08: *TG 1458. *The patient stopped all of his medications, including his lipid-lowering medications > 4 months [employer], as "his insurance ran out". *No TG were checked on admission. He remotely had an umbilical hernia repair approximately 2007. He denied any additional abdominal surgery. FHx significant for 1 brother- early onset colon Ca onset 56, M- breast Ca 65, pt's son- brain tumor 30. There is no FHx of IBD or pancreatitis. *The patient has had a previous extensive GI workup by Dr. Montana: 08/12/09: Colonoscopy to TI (for diarrhea)-normal to TI with random bxs of TI & colon- negative. 06/20/12: EGD to D2 (for abd pain, bloating, dyspepsia, & dysphagia)-possible antral submucosal mass, mild duodenitis, suggestion of ? gastroparesis, normal GEJ & esophageal mucosa, without any obvious cause for dysphagia, normal small bowel folds- bxs duod- nl villi, bxs antral submucosal mass- benign gastric mucosa with focal mild glandular dilatation, HP negative, bxs gastric body- nl gastric mucosa, HP-neg, bxs GEJ- benign gastric mucosa with mild focal mild acute inflammation, HP-neg, focal goblet cell metaplasia & adj rx squamous mucosa, neg EOE, bxs lower esoph- squamous mucosa with rx & hyperplastic change, neg EOE. 06/24/12: Complete abdominl sono- fatty liver & GB sludge, without gallstones or dilated ducts. 06/24/12: GES-normal gastric emptying for solid meal at 4 hours. 09/02/12: EGD/EUS per Dr. Hare (for evaluation of 4 cm antral submucosal mass towards lesser curve)- normal-appearing gallbladder causing extrinsic compression of distal gastric antrum, otherwise normal EUS to D2, including normal pancreas, distal biliary tract, & surrounding structures. 07/01/15: Colonoscopy to cecum- normal study xc small int hemorrhoids. (*A follow-up colonoscopy was advised in 5 years, namely 06/2020, as the patient 's brother had early onset colon Ca, at age 56). 10/01/17: Admission labs- WBC 11.8 (83% gran/10 gran), H/H 12.9/38.9, MCV 90.8, RDW 14.1, PLT 172, glu 227, BUN/Cr 15/0., GFR > 60, Na 135, K 3.7, HCO3 24, AG 12, lactate 1.4, nl A/L 47/196, Ca 7.0, albumin 3.2, globulin 2.9, TBil 1.1, alk phos 90, AST 60, ALT 24, troponin < 0.01 10/01/17: U/A clear yellow, < 1.005, 6.5, tr ket, sm Hgb, 30+ prot, 4.0 urobil; neg nitrit, neg esterase. 10/02/17: WBC 9.6, H/H 12.4/36.8, PLT 189, BUN/Cr 10/0.7, GFR > 60, Na 138, K 3.9, HCO3 27, AG 11. No EKG was done on admission. 10/01/17: CT ABD & PELVIS W IV CONTRAST (*personally reviewed by myself with Dr. Malone, of [facility] on 10/02/17)- IMPRESSION: - There is fairly extensive edema and inflammation surrounding the second and third portions of the duodenum as well as the pancreas. Edema tracks anteriorly below the greater curvature of the stomach towards the transverse colon, and tracks inferiorly along the paracolic gutters on both sides, greater on the right. Differential considerations include the sequela of pancreatitis or duodenitis/gastritis with the latter favored given that the pancreas itself looks relatively normal in appearance and that the second and third portions of the duodenum and to a lesser extent the stomach appear thick walled with mucosal hyperenhancement. Recommend correlation with serum amylase/lipase. - Diffuse hepatic steatosis. Normal CBD, PD, PV, GB, spleen, & adrenals. B/L renal cysts. - There is intramural fat within the ascending colon and portions of the transverse colon which can be seen as the sequela of inflammatory bowel disease. Recommend correlation with the patient's history. Diverticulosis coli without acute diverticulitis. No adenopathy. -ASHD of aortoiliac vessels. Central prostate calcifications. *As of 10/02/17, it was difficult to say whether the patient's abdominal pain and abnormal CT findings were sequelae of pancreatitis vs. duodenitis/gastritis. The patient has had a previous extensive GI workup as above, per Dr. Montana, including multiple EGD, EUS, and colonoscopy. Nothing in the past has pointed to IBD, which would be less likely clinically. The patient had no diarrhea. He had no peritoneal signs. There was no free air on admission imaging studies, which I reviewed with Dr. Malone, of [facility]. *Please note, the patient stopped all of his diabetic and lipid medications 4 months [employer], "due to loss of insurance" & previous TG levels were nearly 1500, which can cause pancreatitis. A TG level had not been repeated on admission. Although his admission lipase was normal, it is possible that if his serum was very lipemic, this could blunt the lipase level. It is possible that the nonspecific inflammation in the transverse colon could be reactive in nature from possible pancreatitis, as well. Rule out gastroenteritis, although no significant diarrhea. Again, IBD less likely clinically. He was getting hungry and his appetite was improving. Despite the history of peripheral neuropathy, previous gastric scintiscan- negative for gastroparesis. Instrument: diagnostic gastroscope Meds Received: PAM Patient's Tolerance: good Complications: none Extent Reached: D3 Procedure: Follow-up upper endoscopy to the third portion of the duodenum with biopsies, was performed with the Olympus high definition videoendoscope, after obtaining informed consent from the patient, with the lunchroom monitor and pulse oximeter, with the assistance of Dr. Ray, of [facility]. The patient was edentulous. A mouthpiece was placed in the usual fashion to protect the patient' s oral cavity. The patient was placed in the left lateral decubitus position and sedated by [facility]. At this point, the endoscope was advanced from the mouth into the esophagus, using direct visualization technique. The vocal cords appeared normal. The upper esophageal inlet was minimally snug, but there was no evidence of a Zenker's diverticulum. The esophageal mucosa appeared normal. There were no esophageal rings, webs, lesions, strictures, or ulcers. There was no monilia or vesicles. There was no esophageal ribbing. The Z line was well demarcated at 44 cm. There was no significant hiatal hernia pouch. No significant esophageal inflammation was seen. There were no ectopic islands, nor gross Garrett's esophagus. Based on the patient's chronic dysphagia, repeat random esophageal biopsies were obtained: (Specimen E- 44 cm/Z line, Specimen F- 41 cm, Specimen G- 30 cm; rule out EOE). There were no esophageal or gastric varices, nor any Leona Ferraro tear. The byrd of the stomach distended normally with air insufflation, aside from a known, subtle 4 cm2 submucosal extrinsic compression of the lesser curvature aspect of the antrum, previously found to be extrinsic compression from the gallbladder, based on 09/02/12: EUS. Direct and retroflexed views of the stomach were performed. There was nothing endoscopically to suggest gastroparesis or portal gastropathy. The mucosa of the gastric cardia, fundus, lesser curvature, incisura, body, and antrum appeared normal, without any gastric ulcers or gastric lesions. Random gastric biopsies were obtained : (Specimen C- antrum, Specimen D- fundus). The pylorus was patent, without any gastric outlet obstruction or channel ulcer. The duodenal bulb showed some minimal erythema, and was biopsied x 2: (Specimen B). The duodenal sweep, ampulla, & third portion of the duodenum appeared normal, without any duodenal ulcers, distal ulcerations, or angiodysplasias. The folds of the second & third portions of the duodenum were normal in caliber, without any flattening, nodularity, scalloping, or mosaic pattern. Nevertheless , based on the CT findings, random small bowel biopsy 4 of normal-appearing second & third portions of the duodenum were obtained: (Specimen A). No active upper GI bleeding was seen. Documenting photographs were obtained and placed inside the patient's chart. The patient tolerated the procedure very well. Impression: 1. Random small bowel biopsy 4 of normal-appearing second & third portions of the duodenum: (Specimen A; abnormal CT). 2. Mild inflammation of duodenal bulb, biopsy x 2: (specimen B). 3. Random gastric biopsies: (Specimen C- antrum, Specimen D- fundus). 4. Known, subtle 4 cm2 submucosal extrinsic compression of the lesser curvature aspect of the antrum, previously found to be extrinsic compression from the gallbladder, based on 09/02/12: EUS. 5. Random esophageal biopsies: (Specimen E- 44 cm/Z line, Specimen F- 41 cm, Specimen G- 30 cm; rule out EOE). 6. Slightly snug upper esophageal inlet, without gross Zenker's diverticulum. Recommendations: Await biopsies of duodenum, stomach, & esophagus. The patient was advised to call the office within 2 weeks for the pathology results. Clears po & advance to low fat DM 2g Na+ diet, as tolerated. Continue PPI & Zofran as needed. Mobilize patient. Ultram as needed. No NSAIDS. Doubt need for ESR, CRP, or fecal calprotectin. It is possible the remainder of the GI workup can be done as an outpatient. By dates, the patient is due for a surveillance colonoscopy with Dr. Montana in 06/2020, based on the +FHx of early onset colon Ca (pt's bro- onset 56), unless this has to be moved up sooner, based on clinical grounds. He was urged to resume his numerous outpt medications, as he has numerous comorbidities. He had mild fatty liver on imaging studies, most likely related to his HTN, DM, & HLD. He had no laboratory, clinical, or imaging studies suggestive of cirrhosis- doubt need for FibroScan. Consider adding Vit E 800 IU po daily for fatty liver, but this works less well in DM patients. DVT prophylaxis. Workup of other numerous issues and abnormal urinary sediment, as per medical team. *Please note, at the conclusion of this dictation, I found that the 10/02/17: *TG 713, which undoubtedly were higher on the day of admission. Advise resuming lipid-lowering agents, as patient allows (he stopped all of his medications 4 months [employer]). Most likely, the patient's presenting symptoms were from the elevated triglycerides. The above findings and recommendations were discussed with the medical housestaff postoperatively, as well as with the patient. I left a message with the patient's , Marsha, postop, at [phone], regarding the above. Again, if the patient can eat, the remainder of the GI workup can be done as an outpatient. ADDENDUM: 10/04/2017- A. 2ND AND 3RD PORTION OF DUODENUM, RANDOM BIOPSY x 4: MILD CONGESTION. NEGATIVE FOR EVIDENCE OF MALIGNANCY AND CELIAC DISEASE. B. MILDLY INFLAMED DUODENAL BULB, BIOPSY: FOCAL SURFACE EPITHELIAL GASTRIC METAPLASIA, AND MILD CONGESTION. NEGATIVE FOR EVIDENCE OF MALIGNANCY AND CELIAC DISEASE. C. GASTRIC ANTRUM, RANDOM BIOPSY: MILD CONGESTION. GIEMSA STAIN IS NEGATIVE FOR HELICOBACTER-TYPE STRUCTURES. NEGATIVE FOR EVIDENCE OF MALIGNANCY. D. GASTRIC FUNDUS, RANDOM BIOPSY: MILD CONGESTION. GIEMSA STAIN IS NEGATIVE FOR HELICOBACTER-TYPE STRUCTURES. NEGATIVE FOR EVIDENCE OF MALIGNANCY. E. ESOPHAGUS AT 44 CM/Z-LINE, RANDOM BIOPSY: SQUAMOUS MUCOSA WITH MINIMAL REACTIVE CHANGE, WITHOUT SIGNIFICANT EOSINOPHILIC INFILTRATION. NEGATIVE FOR EVIDENCE OF MALIGNANCY. F. ESOPHAGUS BIOPSY AT 41 CM, RANDOM BIOPSY: SQUAMOUS MUCOSA WITH MILD REACTIVE CHANGE, WITHOUT SIGNIFICANT EOSINOPHILIC INFILTRATION. NEGATIVE FOR EVIDENCE OF MALIGNANCY. G. ESOPHAGUS BIOPSY AT 30 CM, RANDOM BIOPSY: SQUAMOUS MUCOSA WITH FOCAL MILD REACTIVE CHANGE, WITHOUT SIGNIFICANT EOSINOPHILIC INFILTRATION. NEGATIVE FOR EVIDENCE OF MALIGNANCY. Dictated by: Gigi WALLACE,Oliverio Reaves *Please note, at the conclusion of this dictation, I found that the 10/02/17: * TG 713, which undoubtedly were higher on the day of admission. Advise resuming lipid-lowering agents, as patient allows (he stopped all of his medications 4 months [employer]). Most likely, the patient's presenting symptoms were from the elevated triglycerides. Random bxs D2/D3- neg. Bxs mildly inflamed duod bulb- focal surface GM, otherwise neg. Random gastric bxs antrum & fundus- neg, HP- neg. Random esophageal bxs at 44 cm/Z line, 41 cm, & 30 cm- squamous mucosa with minimal to mild rx change, neg EOE. The pt was D/C from 10/03/17, by the hospitalist service. I called the pt 10/04/17 at 6:30 p.m., at [phone], & left him a message, regarding the essentially unremarkable bxs. Low fat DM 2g Na + diet, as tolerated. No NSAIDS. The pt was D/C, apparently on Amlodipine 2.5 mg daily, ALE 600 mg 4x/day, Fenofibrate 200 mg daily, Fish oil, & Detemir insulin 30u sc BID, as per the medical team. By dates, the patient is due for a surveillance colonoscopy with Dr. Montana in 06/2020, based on the +FHx of early onset colon Ca (pt's bro- onset 56), unless this has to be moved up sooner, based on clinical grounds. He was previously urged to resume his numerous outpt medications, as he has numerous comorbidities. He had mild fatty liver on imaging studies, most likely related to his HTN, DM, & HLD. He had no laboratory, clinical, or imaging studies suggestive of cirrhosis- doubt need for FibroScan. The above findings and recommendations were previously discussed with the medical housestaff postoperatively, on 10/02/2017, as well as with the patient. I previously left a message with the patient's , Marsha, postop, on 10/02/17, at [phone], regarding the above. CC: Annelise WALLACE,Francy; Yamileth WALLACE,Daryl; Reynold WALLACE,Abraham; Panchito Montana MD
--- NOTE | 2017-10-02 16:16 | Discharge Summary ---
Visit Information Visit Dates Admission Date: 10/01/17 Discharge Date: 10/03/17 Hospital Course Course Attending Physician: Reynold WALLACE,Abraham Primary Care Physician: Patient Has No Primary Care Dr Hospital Course: Mr Rodriguez is a 57 year old man w/ a PMHx of hyperlipidemia, hypertension, insulin treated type 2 diabetes( not being on any meds for the last 4 months due to insurance issues, and has not seen PCP in 5 months) came to the hospital with a chief concern of lower abdominal pain x 3 days. Pain started three days ago, located periumbilical and radiated towards b/l lower abdominal area, gradually progressed from severity of 3/10-->8/10, which made him seek medical attention. He went to work on the day of admission, and reported to have a large bowel movement, non bloody. Also reported to have nausea, but no vomiting. Decreased by mouth intake in the last 4 days. No ian, brpbr. No fever, but reported fatigue. No chest pain, shortness of breath. No recent alcohol use. No drug use. No vision problems, joint pains, oral ulcers, rashes, but repored lower back pain which is chronic. No travel, or sick contacts, or any food poisoning. Fam Hx of stage 4 colon cancer in brother at age 59, breast ca in mother. with six healthy children. Last colonoscopy done was in 2016 for scrrening given h/o colon cancer in brother. Also gave h/o of dysphagia to solid and liquid foods, and has a h/o gastroparesis which was not followed up by his GI after his last EGD. At the time of admission-temperature 98.5, pulse rate 83, respiration 18, blood pressure 122/71, pulse ox 99% on room air. General Exam: AAOx3, mild distress, dry mucosa, Skin: No rashes, no breakdown; HEENT: PERRLA, EOMI;Neck: Supple, No JVD; No cervical lymphadenopathy;CVS: Reg Rate, Normal S1,S2, No MGR;Resp: Normal air entry, no ronchi/rales;Abdomen: Soft , RLQ ++ tenderness > other parts of abdomen, Normal Bowel Sounds all four quadrants;Neuro: Normal Speech, Strength 5/5 b/l x 4 extremities, Sensation intact, CN III-XII NL, Reflexes 2+; Extremities: No cyanosis, no pedal edema. Pertinent lab findings: WBC 11.8 (83.4% granulocytes), hemoglobin 12.9, hematocrit 38.9, platelet count 172 Sodium 135, potassium 3.7, chloride 99, bicarbonate 24 BUN 15, creatinine 0.8. Glucose 227. Lactic acid 1.4 Calcium 7.0, albumin 3.2 corrected calcium- 7.64 ( low calcium ? saponification ) Liver enzymes-AST 60(fatty liver ?), ALT 24, alkaline phosphatase 90. Troponin I 0.01. Lipase 196, amylase 47. UA- 30 protein, trace ketones, 4.0 urobilinogen, few RBC small Hemoglobin CT abdomen w/ iv contrast- There is fairly extensive edema and inflammation surrounding the second and third portions of the duodenum as well as the pancreas. Edema tracks anteriorly below the greater curvature of the stomach towards the transverse colon, and tracks inferiorly along the paracolic gutters on both sides, greater on the right. Differential considerations include the sequela of pancreatitis or duodenitis/gastritis with the latter favored given that the pancreas itself looks relatively normal in appearance and that the second and third portions of the duodenum and to a lesser extent the stomach appear thick walled with mucosal hyperenhancement. Diffuse hepatic steatosis. There is intramural fat within the ascending colon and portions of the transverse colon which can be seen as the sequela of inflammatory bowel disease. Last colonocscopy 2015 - Grossly normal colonic mucosa. 2. Small internal hemorrhoids. Last EGD 2012- Possible antral submucosal mass, status post biopsies. Mild duodenitis. Suggestion of gastroparesis, status post gastric biopsies. Normal GE junction and esophageal mucosa without an obvious cause of dysphagia seen, status post random biopsies.Normal small bowel folds, status post biopsies. Pt was admitted to general medicine floors for abdominal pain, rule out inflammatory bowel disease. Patient was kept n.p.o. overnight, vitally stable, afebrile. Patient went for upper endoscopy, with no significant findings. Gastroenterology was consulted, who's opinion is pancreatitis , triglyceride induced, as opposed to inflammatory bowel disease as his previous triglyceride was 1500, and he did not have any medications for 4 months after losing his insurance. His lipase was normal, however that could be 2/2 of a lipemic serum. Patient's triglycerides the day after admission were in the 750s. Post endoscopy, patient's diet was switched to clear liquid, which he tolerated well. Patient did not have any nausea or vomiting, is ambulatory, requested to be discharged. He does not have a primary care practitioner, and will be referred to Dr. Heredia in the clinic. He will have close follow-up with gastroenterology , who he has been following with Dr. Montana for the past several years, and will return home. He will be started on famotidine for gastritis, and any pancreatitis inducing medications will be held upon discharge for follow-up with his PCP. Allergies: Coded Allergies: ibuprofen (HIVES, ITCHY, GI UPSET 09/13/15) Significant Procedures: EGD 10/02/17 Impression: 1. Random small bowel biopsy 4 of normal-appearing second & third portions of the duodenum: (Specimen A; abnormal CT). 2. Mild inflammation of duodenal bulb, biopsy x 2: (specimen B). 3. Random gastric biopsies: (Specimen C- antrum, Specimen D- fundus). 4. Known, subtle 4 cm2 submucosal extrinsic compression of the lesser curvature aspect of the antrum, previously found to be extrinsic compression from the gallbladder, based on 09/02/12: EUS. 5. Random esophageal biopsies: (Specimen E- 44 cm/Z line, Specimen F- 41 cm, Specimen G- 30 cm; rule out EOE). 6. Slightly snug upper esophageal inlet, without gross Zenker's diverticulum. Pertinent Lab Results: 10/01 Glucose 227; 10/02 TG 713, Chol 283 Disposition Summary Disposition Principal Diagnosis: Pancreatitis Additional Diagnosis: Uncontrolled insulin dependent T2DM, HTN, Abdominal Pain NOS Discharge Disposition: home or self care Discharge Instructions General Discharge Information Code Status: Do Not Resucitate/Intubat Patient's Diet: Advance as tolerated; currently on clears Patient's Activity: As tolerated Follow-Up Instructions/Appts: - Please follow up with your primary care physician within 1-2 weeks of discharge. Inform your primary care physician of this admission to [facility]. - Continue your current medications per discharge instructions. - Please watch for these problems: Fever, Chills, Nausea, Vomiting, Shortness of Breath, Productive Cough, Chest Pain/Discomfort, Abdominal Pain, Active Bleeding or Bloody urine/stool. Medications at Discharge Discharge Medications: Stop taking the following medications: Atorvastatin Calcium (Atorvastatin Calcium) 40 MG TABLET ORAL DAILY Qty = 30 Empagliflozin/Metformin HCl (Synjardy 12.5-1,000 MG Tablet) 12.5 MG-1,000 MG TABLET ORAL TWICE DAILY Qty = 60 Losartan Potassium (Losartan Potassium) 100 MG TABLET ORAL DAILY Qty = 30 Continue taking these medications: Amlodipine Besylate (Amlodipine Besylate) 2.5 MG TABLET 1 Tablet ORAL DAILY Qty = 30 Gabapentin (Gabapentin) 600 MG TABLET 1 Tablet ORAL 4XDAILY Qty = 120 Fenofibrate,Micronized (Fenofibrate) 200 MG CAPSULE 1 Capsule ORAL DAILY Qty = 30 Insulin Detemir (Levemir Flextouch) 100 UNIT/ML (3 ML) INSULN.PEN 30 Units SC TWICE DAILY Qty = 15 [place]-3/Dha/Epa/Fish Oil (Fish Oil 1,000 MG Softgel) (Unknown Strength) CAPSULE Unknown Dose ORAL TWICE DAILY Copies To: Yan WALLACE,Yan
--- NOTE | 2017-10-02 16:54 | Patient Discharge Instructions ---
Discharge Instructions General Discharge Information You were seen/treated for: Abdominal Pain/Pancreatitis You had these procedures: EGD Special Instructions: - Please follow up with your primary care physician within 1-2 weeks of discharge. Inform your primary care physician of this admission to [facility]. - Continue your current medications per discharge instructions. - Please watch for these problems: Fever, Chills, Nausea, Vomiting, Shortness of Breath, Productive Cough, Chest Pain/Discomfort, Abdominal Pain, Active Bleeding or Bloody urine/stool. Acute Coronary Syndrome Inclusion Criteria At DC or during hospital stay patient has or had the following: ACS DIAGNOSIS No Discharge Core Measures Meds if any: Prescribed or Continued at Discharge Meds if any: NOT Prescribed or Continued at Discharge Congestive Heart Failure Inclusion Criteria At DC or during hospital stay patient has or had the following: CHF DIAGNOSIS No Discharge Core Measures Meds if any: Prescribed or Continued at Discharge Meds if any: NOT Prescribed or Continued at Discharge Cerebrovascular accident Inclusion Criteria At DC or during hospital stay patient has or had the following: CVA/TIA Diagnosis No Discharge Core Measures Meds if any: Prescribed or Continued at Discharge Meds if any: NOT Prescribed or Continued at Discharge Venous thromboembolism Inclusion Criteria VTE Diagnosis No VTE Type NONE VTE Confirmed by (Test) NONE Discharge Core Measures - Per Current guidelines, there needs to be overlap - treatment for the first 5 days of Warfarin therapy. - If discharged on Warfarin prior to 5 days of - overlap therapy, the patient will need to be - assessed for post discharge needs including - *Post discharge parental anticoagulation - *Warfarin and/or parental anticoagulation education - *Follow up date to check INR post discharge At least 5 days overlap therapy as Inpatient No Meds if any: Prescribed or Continued at Discharge Note: Overlap Therapy is Warfarin and Anticoagulant Meds if any: NOT Prescribed or Continued at Discharge
[2017-10-02 22:00] VITALS: BP 136/50
[2017-10-03 06:30] VITALS: BP 144/76
--- NOTE | 2017-10-03 07:12 | PN- Housestaff ---
Axel Nowak 10[birth year]/17711: Subjective Follow-up For: Pancreatitis Subjective: Pt seen and evaluated at bedside. Denies any complaints overnight. States some abdominal pain, although has been dealing with it for years and he can "grin and bear it". States he is ready to go home. Denies fevers/chills/night sweats/ chest pain/urinary symptoms/le edema Review of Systems Constitutional: Reports: see HPI. Objective Last 24 Hrs of Vital Signs/I&O Vital Signs Date Time Temp Pulse Resp B/P B/P Pulse O2 O2 Flow FiO2 Mean Ox Delivery Rate 10/03 0909 98.5 63 20 144/76 10/03 0630 98.5 63 20 144/76 96 Room Air 10/02 2200 99.3 64 20 136/50 95 Room Air 10/02 1438 98.0 72 22 128/70 97 Intake & Output 10/03 1600 10/03 0800 10/03 0000 Intake Total 1100 500 Output Total 500 500 Balance 600 0 Intake, IV 800 400 Intake, Oral 300 100 Output, Urine 500 500 Physical Exam General Appearance: Alert, Oriented X3, Cooperative, No Acute Distress Skin: No Rashes Skin Temp/Moisture Exam: Warm/Dry Cardiovascular: Regular Rate, Normal S1, Normal S2 Lungs: Clear to Auscultation, Normal Air Movement Abdomen: RUQ tenderness Neurological: Sensation Intact Extremities: No Edema Vascular: Normal Pulses Current Medications: Current Medications Sig/Rene Start time Last Medication Dose Route Stop Time Status Admin Acetaminophen 500 MG Q8P PRN 10/01 2200 DCD PO Chlorhexidine 1 GM .STK-MED ONE 10/02 1459 DC Gluconate TOP 10/02 1500 Dextrose/Sodium 1,000 ML Q10H 10/01 214 DCD 10/03 Chloride IV 0604 Famotidine 20 MG BID 10/02 1442 DCD 10/03 IV 0909 Heparin Sodium 5,000 UNIT Q8 10/01 2200 DCD (Porcine) SC Hydromorphone HCl 1 MG Q3P PRN 10/01 2145 DCD 10/03 IV 0607 Insulin Human Regular 3 UNITS .STK-MED ONE 10/02 2337 DC IV 10/02 2338 Insulin Human Regular 3 UNITS .STK-MED ONE 10/02 1908 DC IV 10/02 1909 Insulin Human Regular 1 UNITS .STK-MED ONE 10/02 1203 DC IV 10/02 1204 Insulin Human Regular 0 Q6 10/01 2359 DCD 10/03 SC 0602 Losartan Potassium 100 MG DAILY 10/02 0900 DCD 10/03 PO 0909 Pantoprazole Sodium 40 MG DAILY 10/02 0900 DC 10/02 IV 0834 Tramadol HCl 50 MG Q8P PRN 10/01 2200 DCD 10/03 PO 1007 Assessment/Plan Assessment: This is a 57yo m pmhx Hyperlipidemia, HTN, T2DM on insulin, without insurance and has not taken medications for over 4 months who presents with lower abdominal pain x3 days, admitted with Abdominal Pain r/o IBD, going for endoscopy today #Duodenitis/Pancreatitis -Went for upper endoscopy. Will follow up in 2 weeks for biopsy results -Tolerating regular diet. -GI consult appreciated. Added on Triglycerides per GI. Per GI this is pancreatitis 2/2 hypertriglyceridemia...triglycerides were 1500 previously, 750 on this admission and patient has been off medications for 4 months. GI states if pt can tolerate diet will be able to be discharged home to complete rest of workup outpatient. -CT shows extensive edema and inflammation surrounding the second and third portions of the duodenum as well as the pancreas,There is intramural fat within the ascending colon and portions of the transverse colon -Pain management - per pathway #W/O Insurance -Will follow closely with case management GI/DVT PPx IV access DNR/DNI NPO-Will restart diet post endoscopy Disposition- to home Problem List: 1. Abdominal pain Pain Ratin Pain Location: RUQ Pain Goal: Pain 4 or less Pain Plan: pathway [facility] Labs & Rationales: Abraham Banda 10/03/17 1108: Attending MD Review Statement Attending Statement Attending MD Statement: examined this patient, discuss w/resident/PA/ENVIRONMENTAL QUALITY ANALYST, agreed w/resident/PA/ENVIRONMENTAL QUALITY ANALYST, discussed with family, reviewed EMR data (avail), discussed with nursing, discussed with case mgmt, reviewed images, amended to note Attending Assessment/Plan: Patient medically stable for discahrge. EGD negative for acute pathology. He is being treated for pancreatitis. Improved and toelrating PO diet. Avoid medicatons causing pancreatitis. He has some lipid derangement on labs. Need to folow up with GI and referral to PCP at discharge. Insurance is barrier for his medical care presently. He spoke to case management regarding his insurance issues.
[2017-10-03 09:09] VITALS: BP 144/76
== END 2017-10-03 11:00 | DRG 282 ==
LOC: ERH 17:06 → 2NA 20:30 → ERHI 20:30 → ENRESERV 21:12 → ENTRNSPT 21:36 → EDTRNSPTSTS 21:45 → EDTRNSPT 21:45 → 2NA 21:47 → CMPTRNSPT 21:59 → 2NA 10-02 07:50 → ENPENDDIS 10-03 10:32 → 2NA 10-03 11:00
PROVIDERS: Internal Medicine Endocrinology, Diabetes & Metabolism; Physician Assistant
PROC: 0DB58ZX Excision of Esophagus, Via Natural or Artificial Opening Endoscopic, Diagnostic (ICD-10-PCS; principal; 2017-10-02)
PROC: 0DB98ZX Excision of Duodenum, Via Natural or Artificial Opening Endoscopic, Diagnostic (ICD-10-PCS; principal; 2017-10-02)
PROC: 0DB68ZX Excision of Stomach, Via Natural or Artificial Opening Endoscopic, Diagnostic (ICD-10-PCS; principal; 2017-10-02)
DX: K85.90 Acute pancreatitis without necrosis or infection, unspecified (principal); E11.65 Type 2 diabetes mellitus with hyperglycemia; I10 Essential (primary) hypertension; E78.5 Hyperlipidemia, unspecified; Z79.4 Long term (current) use of insulin; Z91.14 Patient's other noncompliance with medication regimen; R13.10 Dysphagia, unspecified; R74.0 Nonspecific elevation of levels of transaminase and lactic acid dehydrogenase [LDH]; E11.40 Type 2 diabetes mellitus with diabetic neuropathy, unspecified; K76.0 Fatty (change of) liver, not elsewhere classified; R10.9 Unspecified abdominal pain; E78.1 Pure hyperglyceridemia; Z80.0 Family history of malignant neoplasm of digestive organs; Z88.6 Allergy status to analgesic agent; Z66 Do not resuscitate
CPT/HCPCS: 2NASP; 36592; 74177; 81001; 82436; 96374; 96375; J0131; J1644; J1815; J3490; J7042